=== PATIENT | male | born 1945 | race Caucasian/White ===

== ENCOUNTER 2022-03-09 12:40 | Outpatient (CLI) | payer MEDICARE, SELFPAY ==
--- NOTE | ~2022-03-09 | CT_ITS ---
EXAMINATION: CT soft tissue neck wo/w con DATE: 03/09/2022 13:14 INDICATION: Squamous cell carcinoma of skin. TECHNIQUE: Computed tomography (CT) of the neck was performed without and with 75 mL Omnipaque 350 in travenous contrast. Automated exposure control and iterative reconstruction technique were employed. The dose-length product was 1003.08 mGy-cm. COMPARISON: None FINDINGS: There is mild scarring at the lung apices. There are changes of resection of right parotid gland. Left submandibular gland and left sternocleidomastoid muscle are small, which may be changes o f surgery and/or radiation therapy. There is fat stranding in the neck, likely changes of radiation t herapy. There is plaque in the proximal internal carotid arteries with less than 50% stenosis relativ e to normal distal artery lumen diameters. There is mild mucosal thickening in the paranasal sinuses. There are pacer wires in left chest. There is a small left mastoid effusion. There is severe cervica l and thoracic spondylosis. IMPRESSION: 1. No evidence of metastatic disease. Reviewed, dictated and finalized at location A. B PACKER
--- NOTE | ~2022-03-09 | CT_ITS ---
EXAMINATION: CT brain wo con DATE: 03/09/2022 13:14 INDICATION: Squamous cell carcinoma of skin. TECHNIQUE: Computed tomography (CT) of the head was performed without intravenous contrast. The mA wa s adjusted according to patient size. Iterative reconstruction technique was employed. The dose-lengt h product was 605.33 mGy-cm. COMPARISON: None FINDINGS: There are scattered areas of low attenuation in the cerebral white matter, which is within normal limits for the patient's age. There is no intracranial hemorrhage, acute infarction, or abnorm al intracranial mass lesion. The ventricles are normal in size. The orbits are normal. There is mild mucosal thickening in the paranasal sinuses. There is a small left mastoid effusion. There are likely surgical changes at the left frontal lateral scalp. IMPRESSION: 1. Normal aging brain. Reviewed, dictated and finalized at location A. KER AND SEWER IMPRESSION: 1. Normal aging brain.
== END 2022-03-09 12:41 | disposition home or self-care (01) ==
PROVIDERS: PCP Family Medicine Sports Medicine
DX: C44.92 Squamous cell carcinoma of skin, unspecified (principal)
CPT/HCPCS: 70450; 70492; Q9967

== ENCOUNTER 2022-09-19 12:24 | Emergency (ER) | payer MEDICARE, SELFPAY ==
[2022-09-19 12:27] VITALS: BP 211/84; PULSE 60; RESP 16; TEMP 36.1; O2SAT 99
--- NOTE | 2022-09-19 12:33 | ECG_ITS ---
Measurements Intervals [place] Rate: 60 P: 128 [place]: 195 QRS: -52 QRSD: 164 T: 107 QT: 447 QTc: 447 Interpretive Statements ELECTRONIC ATRIAL PACEMAKER ELECTRONIC VENTRICULAR PACEMAKER BASELINE WANDER- V1 NO FURTHER INTERPRETATION IS POSSIBLE ATYPICAL ECG COMPARED TO ECG 02/18/2019 23:51:20 NO SIGNIFICANT CHANGES Electronically Signed On 09-19-2022 13:02:35 CDT by Wilfredo Borrero D.O.
--- NOTE | 2022-09-19 15:00 | ED.WOUNDLAC ---
HPI - Wound/Laceration General Chief Complaint: Wound/Laceration Stated Complaint: L LEG REDNESS S/P BEE STING, ELEVATED BP Time Seen by Provider: 09/19/22 14:14 History of Present Illness HPI narrative: This is 77-year-old male with past history of hypertension, presented to the emergency department with concern for an infected bee sting of the left leg. The patient states several days ago, he was stung on the left ankle and has since developed spreading redness and mild pain in the area. He denies weakness, numbness, nausea or vomiting. He also notes today that his blood pressure was elevated to the 200s. He states he has had episodes of elevated blood pressure but has no other complaints at this time. Related Data Home Medications Medication Instructions Recorded Confirmed apixaban 2.5 mg tablet (Eliquis) 2.5 mg PO BID 02/19/19 02/19/19 simvastatin 5 mg tablet 5 mg PO DAILY 02/19/19 02/19/19 Allergies Allergy/AdvReac Type Severity Reaction Status Date / Time No Known Allergies Allergy Verified 02/19/19 00:50 Review of Systems Review of Systems: CONSTITUTIONAL: Denies fever, chills, or sweats. CARDIOVASCULAR: Denies chest pain, palpitations, or edema. RESPIRATORY: Denies cough or dyspnea. GASTROINTESTINAL: Denies abdominal pain, nausea, vomiting, or diarrhea. GENITOURINARY: Denies dysuria or hematuria. SKIN: Spreading redness and irritation of the left ankle denies itching. MUSCULOSKELETAL: Denies back pain, joint pain, or myalgia. NEUROLOGIC: Chronic intermittent headaches denies numbness, dizziness, or weakness. PSYCHIATRIC: Denies anxiety or depression. PMFSH Past Medical History Medical History AV block, 2nd degree DM II (diabetes mellitus, type II), controlled Hypertension Surgical History Surgical History History of hip surgery History of permanent cardiac pacemaker placement Hx of cardiac cath Social History Social History (Updated 09/19/22 @ 15:03 by Jose Barber MD) Smoking status: Never smoker Alcohol intake: never Substance use: never Exam Narrative: GENERAL: Well-developed, well-nourished, and in no acute distress. HEAD: Normocephalic, atraumatic. EYES: PERRLA and EOMI. ENT: Nares clear, no rhinorrhea or epistaxis. Mucous membranes moist. Oropharynx without tonsillar hypertrophy exudate or other lesions. CHEST: Clear to auscultation. No respiratory distress. No wheezes rales or rhonchi. There is a foreign object in the anterior lateral left chest wall consistent with pacemaker HEART: Regular rate and rhythm. No murmur heard. Normal peripheral pulses. ABDOMEN: Soft, nontender, nondistended, normal active bowel sounds. EXTREMITIES: Normal range of motion. No edema. SKIN: There is an area of erythema with mild induration with sharp demarcation over the lateral aspect of the left distal ankle with a single punctate hyperpigmented lesion. Warm, dry, no rash. NEURO: No focal deficits. Alert and oriented x3. PSYCH: Normal mood and affect. Course Course Emergency Course: 15:04 - The patient's exam is consistent with cellulitis. Blood pressure improved without intervention. EKG is not concerning for ischemia. Will discharge with oral antibiotics and recommendation for primary care follow-up. Discussed return and emergency precautions including signs/symptoms of sepsis and septic arthritis. The patient voiced understanding and is comfortable with the plan. All questions answered to his satisfaction. Vital Signs Vital signs: Vital Signs Temperature 96.9 F L 09/19/22 12:27 Pulse Rate 60 09/19/22 12:27 Respiratory Rate 16 09/19/22 12:27 Blood Pressure 211/84 H 09/19/22 12:27 Pulse Oximetry 99 09/19/22 12:27 Temperature 96.9 F L 09/19/22 12:27 Pulse Rate 60 09/19/22 12:27 Respiratory Rate 16 09/19/22 12:27 Blood Pressure 21
[2022-09-19 15:23] VITALS: BP 161/79; PULSE 66; RESP 22
== END 2022-09-19 15:23 | disposition home or self-care (01) ==
PROVIDERS: Emergency Provider Preventive Medicine Aerospace Medicine; PCP Family Medicine Sports Medicine
DX: L03.116 Cellulitis of left lower limb (principal); I10 Essential (primary) hypertension; E11.9 Type 2 diabetes mellitus without complications; Z95.0 Presence of cardiac pacemaker
CPT/HCPCS: 93005; 99283

== ENCOUNTER 2025-02-10 10:26 | Emergency (ER) | payer MEDICARE, SELFPAY ==
--- NOTE | ~2025-02-10 | CT_ITS ---
CT HEAD NON-CONTRAST Clinical History: Migraine Comparison: 03/09/2022 Technique: Unenhanced axial images skull base to vertex Coronal, sagittal reformats CT images acquired with automatic exposure control for dose reduction DLP: 605 mGy-cm Findings: Age-related atrophy. Chronic white matter microvascular ischemic changes. Sulci, ventricles: Unremarkable. No intracerebral hemorrhage. No evidence acute territorial infarct. No mass effect, midline shift. Bony calvarium intact. Visualized paranasal sinuses: Sphenoid disease. Mastoid air cells: Fluid left side. IMPRESSION: 1. No acute intracranial findings. Reviewed, dictated and finalized at location R. [facility]
--- NOTE | ~2025-02-10 | CT_ITS ---
EXAMINATION: CT abdomen pelvis w con DATE: 02/10/2025 11:24 INDICATION: Abdominal pain. TECHNIQUE: Computed tomography (CT) of the abdomen and pelvis was performed with 100 mL Omnipaque 350 intravenous contrast. Automated exposure control and iterative reconstruction technique were employed. The dose-length product was 430.64 mGy-cm. COMPARISON: None. FINDINGS: The visualized portions of lung bases demonstrate mild atelectasis. No pleural effusion. The heart size is normal. There are coronary artery calcifications. There are calcifications of the aortic valve. No pericardial effusion. There is a trace pericardial effusion. There is a left chest wall pacer with leads in the right atrium and right ventricle. The liver, gallbladder, and spleen are normal. There is a 6 mm cystic lesion in the uncinate process of the pancreas, likely benign. The pancreatic duct is dilated to 9 mm in the tail of the pancreas. The adrenal glands and kidneys are normal. The bladder is distended. There is diverticulosis of the colon without evidence of diverticulitis. The appendix is not visualized. There are no pathologically enlarged lymph nodes. There is no free intraperitoneal fluid. There are bilateral total hip arthroplasties. There is mild thoracic and lumbar sp ondylosis. IMPRESSION: 1. Dilatation of the pancreatic duct in the tail of the pancreas, which may be secondary to chronic pancreatitis or obstruction from occult adenocarcinoma. Reviewed, dictated and finalized at location E. EXAMINER
--- OUTSIDE RECORDS SUMMARY | 2025-02-10 09:00 | XMS_ITS | Encounter Summary ---
Author Organization [facility] Healthcare Address [address] [place] [address] Care Team Providers Care Computer Aide Name Role Phone Jayla Muro DO Unavailable [phone] Natalie Vang NP Unavailable [phone] Eric Herron OD Unavailable [phone] Jeramy Vargas MD Unavailable [phone] Guido Baez MD Unavailable [phone] Jamil Martinez MD Unavailable [phone] Guido Albrecht MD Unavailable [phone] Eyal Pitts MD Primary Care Provider [phone] Reason for Visit * Reason Comments Abdominal Pain Has had pain for abo ut a year but getting worse over the past couple of weeks Poor Appetite No appetite, losing a lot of weight Encounter Details Date Type Department Care Team (Late st Contact Info) Description 02/10/2025 9:00 AM MOTORIZED SQUAD CAPTAIN Office Visit [facility] Primary Care at [address] [id number] Renita Leigh NP [address] [place] [id number] Type 2 diabetes mellitus with hyperglycemia, with long-term current use of insulin (HCC) (Primary Dx); Abdominal pain, acute; Shortness of breath; Type 2 diabetes mellitus with diabetic polyneuropathy, without long-term current use of insulin (HCC); Anxiety; Personal history of CLL (chronic lymphocytic leukemia) Social History Tobacco Use Types Packs/Day Years Used Date Smoking Tobacco: Never Smokeless Tobacco: Never Alcohol Use Standard Drinks/Week Comments Never 0 (1 standard drink = 0.6 oz pur e alcohol) Social Connection and Isolation Panel Answer Date Recorded In a typical week, how many times do you talk on the phone with family, friends, or neighbors? Three times a week 11/15/2022 How often do you get togethe r with friends or relatives? Three times a week 11/15/2022 How often do you attend chur ch or shinto services? Never 11/15/2022 Do you belong to any clubs o r organizations such as scientology groups, unions, fraternal or athletic groups, or school groups? No 11/15/2022 How often do you attend meet ings of the clubs or organizations you belong to? Never 11/15/2022 Are you , , di vorced, , never , or living with a partner? 11/15/2022 Overall Financial Resource Strain (CARDIA) Answe r Date Recorded How hard is it for you to pa y for the very basics like food, housing, medical care, and heating? Not hard at all 11/15/2022 PHQ-2 Answer Date Recorded PHQ-2 Total Score (If total score is 3 or more points, staff should administer the PHQ-9) 0 02/10/2025 Hunger Vital Sign Answer Date Recorded Within the past 12 months, y ou worried that your food would run out before you got the money to buy more. Never true 11/16/19 23 Within the past 12 months, t he food you bought just didn't last and you didn't have money to get more. Never true 11/15/2022 PRAPARE - Transportation Answer Date Re corded In the past 12 months, has l ack of transportation kept you from medical appointments or from getting medications? No 08/2022 In the past 12 months, has l ack of transportation kept you from meetings, work, or from getting things needed for daily living? No 11/15/2022 Housing Stability Vital Sign Answer Jasper e Recorded In the last 12 months, was t here a time when you were not able to pay the mortgage or rent on time? No 11/15/2022 In the last 12 months, how many places have you lived? 1 11/15/2022 In the last 12 months, was t here a time when you did not have a steady place to sleep or slept in a intermediate (including now)? No 11/15/2022 AUDIT-C Answer Date Recorded Q1: How often do you have a drink containing alc ohol? Never 01/22/2025 Average Number of Drinks Not on file 025 Frequency of Binge Drinking Not on file 01/10 Personal Safety Answer Date Recorded Have you ever been in or are you currently in a harmful physical or emotional relationship or is someone making you feel afraid or unsafe? Denies 09/11/2023 Sex and Gender Information Value Date Recorded Sex Assigned at Not on file Legal Sex Male 9:23 AM MOTORIZED SQUAD [employer]TAIN Gender Identity Not on file Sexual Orientation Not on file documented as of this encounter Last Filed Vital Signs Vital Sign Reading Time Taken Comments Blood Pressure 136/78 02/10/2025 9:10 AM MOTORIZED SQUAD [employer]TAIN Pulse 100 02/10/2025 9:10 AM MOTORIZED SQUAD CAPTAIN Temperature 36.7 C (98 F) 02/10/2025 9:10 AM MOTORIZED SQUAD CAPTAIN Respiratory Rate 20 02/10/2025 9:10 AM MOTORIZED SQUAD CAPTAIN Oxygen Saturation 98% 02/10/2025 9:10 AM MOTORIZED SQUAD CAPTAIN Inhaled Oxygen Concentration - - Weight 62.6 kg (138 lb) 02/10/2025 9:10 AM MOTORIZED SQUAD CAPTAIN Height 175.3 cm (5' 9) 02/10/2025 9:10 AM MOTORIZED SQUAD CAPTAIN Body Mass Index 20.38 02/10/2025 9:10 AM MOTORIZED SQUAD CAPTAIN documented in this encounter Functional Status * In the past year, patient experienced: Question Answer Date of Assessment Author One or more falls in the las t year 2 02/10/2025 9:09 AM MOTORIZED SQUAD [employer]TAIN Sheryl Turner MA How many times? 1 02/10/2025 9:09 AM MOTORIZED SQUAD [employer]TAIN Sheryl Jean MA Was the patient injured in t he fall? No 02/10/2025 9:09 AM MOTORIZED SQUAD [employer]TAIN Sheryl Turner MA * BP Location Answer Date of Assessment Author Right arm 02/10/2025 9:10 AM MOTORIZED SQUAD [employer]TAIN Sheryl Vo MA * BP Location Answer Date of Assessment Author Right arm 02/10/2025 9:10 AM MOTORIZED SQUAD [employer]TAIN Sheryl Vo MA documented as of this encounter Progress Notes * Renita Leigh NP - 02/10/2025 9:00 AM CST Images from the original note were not included. This patient has verbally consented to recording this visit in order to utilize AI technology in generating this note. Visit Diagnoses and Plan Assessment & Plan Type 2 diabetes mellitus with hyperglycemia, with long-term current use of insulin (HCC) Orders: POCT hemoglobin A1c POCT glucose Abdominal pain, acute Shortness of breath Type 2 diabetes mellitus with diabetic polyneuropathy, without long-term current use of insulin (HCC) In office blood sugar 155. A1c 6.4%. down from previous 7.2% in September. Anxiety Personal history of CLL (chronic lymphocytic leukemia) Pt just saw oncology 01/22/2025: ASSESSMENT: Chronic lymphocytic leukemia and thrombocytopenia: On observation without B symptoms ornotable adenopathy. He remains slightly myelosuppressed from his prior treatment. There was no evidence recurrent CLL. His laboratory data from today are consistent with what he has had several timesover the years. On observation Assessment & Plan Acute abdominal pain: Nausea, vomiting, abdominal pain, and unintentional weight loss Chronic nausea and abdominal pain with recent exacerbation. Significant weight loss over the past year. Differential includes severe reflux or other gastrointestinal pathology. Symptoms may be related to previous head and neck cancer treatment and G-tube placement. - Ordered CT of the abdomen. - Ordered laboratory tests. Shortness of breath and dizziness Symptoms severe enough for emergency intervention. - Called ambulance for emergency evaluation and treatment. -short of breath and nausea - pt states he is also short of breath. Respirations 36 when getting upon exam table. Type 2 diabetes mellitus Previously elevated A1c. Jardiance not tolerated. Metformin increased to three times daily. Currentblood sugar levels reportedly better but monitoring limited due to gastrointestinal symptoms. -last A1c 7.2% History of head and neck cancer Persistent gastrointestinal symptoms may be related to past cancer treatment and anatomical changes. Visit Note Chief Complaint Patient presents with Abdominal Pain Has had pain for about a year but getting worse over the past couple of weeks Poor Appetite No appetite, losing a lot of weight Abdominal Pain This is a chronic problem. The current episode started more than 1 year ago. The onset quality is gradual. The problem occurs constantly. The most recent episode lasted 6 weeks. The problem has been rapidly worsening. The pain is located in the generalized abdominal region. The pain is at a severity of 6/10. The quality of the pain is a sensation of fullness. The abdominal pain does not radiate. A ssociated symptoms include anorexia, belching, constipation, headaches, myalgias, nausea, vomiting and weight loss. Pertinent negatives include no arthralgias, hematochezia, hematuria or melena. The pain is aggravated by eating. The pain is relieved by Nothing. History of Present Illness Alcon Harvey is an 79 year old male who presents with persistent nausea and weight loss. He has been experiencing persistent nausea and weight loss for over a year, with symptoms worseningsignificantly since [employer] Day. He describes a constant state of nausea and has difficulty maintaining a sustainable diet, leading to weight loss. Vomiting occurs approximately every three days, but only small amounts due to limited intake. He has a history of cancer treatment, which included significant surgical intervention in his neck,resulting in a hollow cavity in his throat. This has caused difficulty swallowing, and food often gets stuck near his voice box. A barium swallow test conducted in June was normal. He experiences widespread stomach pain since his cancer treatment and reports having a stomach response to the installation of a G tube. He feels weak, dizzy, and short of breath, noting that his condition is deteriorating daily. He has a history of elevated A1c levels and was previously prescribed Jardiance, which he could nottolerate due to urinary issues. His metformin dosage was increased to three times daily, which he was taking inconsistently based on his blood sugar levels. He reports that his blood sugars are running better now. No relatives at home. Wt Readings from Last 10 Encounters: 02/10/25 62.6 kg (138 lb) 01/22/25 64.6 kg (142 lb 6.4 oz) 12/17/24 63.5 kg (140 lb) 12/04/24 63.7 kg (140 lb 6.4 oz) 09/10/24 68 kg (150 lb) 08/18/24 66.4 kg (146 lb 6.4 oz) 08/11/24 69.4 kg (153 lb) 06/18/24 69.4 kg (153 lb) 06/02/24 69.4 kg (153 lb) 05/22/24 68.2 kg (150 lb 6.4 oz) BP 136/78 (BP Location: Right arm, Patient Position: Sitting) Pulse 100 Temp 36.7 ??C (98 ??F) (Temporal) Resp 20 Ht 175.3 cm (5' 9) Wt 62.6 kg (138 lb) SpO2 98% BMI 20.38 kg/m?? Physical Exam Constitutional: General: He is in acute distress. Appearance: He is well-developed. He is ill-appearing and diaphoretic (mild). Cardiovascular: Rate and Rhythm: Regular rhythm. Tachycardia present. Heart sounds: No murmur heard. Pulmonary: Effort: Pulmonary effort is normal. No respiratory distress. Breath sounds: Normal breath sounds. No wheezing. Abdominal: General: Abdomen is flat. Palpations: Abdomen is soft. Tenderness: There is generalized abdominal tenderness. Skin: General: Skin is warm. Coloration: Skin is pale. Neurological: Mental Status: He is alert and oriented to person, place, and time. General: well nourished and well developed in no acute distress. Heart: Regular rate and rhythm without murmurs or rubs. Chest: Lungs clear to auscultation bilaterally with good air movement. Skin: No rashes. Renita Leigh NP RIZED SQUAD CAPTAIN documented in this encounter Miscellaneous Notes * Assessment & Plan Note - Renita Leigh NP - 02/10/2025 9:00 AM MOTORIZED SQUAD [employer]TAIN Associated Problem(s): Personal history of CLL (chronic lymphocytic leukemia) Pt just saw oncology 01/22/2025: ASSESSMENT: Chronic lymphocytic leukemia and thrombocytopenia: On observation without B symptoms ornotable adenopathy. He remains slightly myelosuppressed from his prior treatment. There was no evidence recurrent CLL. His laboratory data from today are consistent with what he has had several timesover the years. On observation RIZED SQUAD CAPTAIN RIZED SQUAD CAPTAIN * Assessment & Plan Note - Renita Leigh NP - 02/10/2025 9:00 AM MOTORIZED SQUAD CAPTAIN Associated Problem(s): Type 2 diabetes mellitus with diabetic polyneuropathy, without long-term current use of insulin (HCC) In office blood sugar 155. A1c 6.4%. down from previous 7.2% in September. RIZED SQUAD CAPTAIN RIZED SQUAD CAPTAIN * Assessment & Plan Note - Renita Leigh NP - 02/10/2025 9:00 AM MOTORIZED SQUAD CAPTAIN Associated Problem(s): Abdominal pain, acute RIZED SQUAD CAPTAIN * Assessment & Plan Note - Renita Leigh NP - 02/10/2025 9:00 AM MOTORIZED SQUAD [employer]TAIN Associated Problem(s): Shortness of breath RIZED SQUAD CAPTAIN * Assessment & Plan Note - Renita Leigh NP - 02/10/2025 9:00 AM MOTORIZED SQUAD [employer]TAIN Associated Problem(s): Anxiety [employer]ED SQU[employer]TAIN documented in this encounter Plan of Treatment Not on file documented as of this encounter Procedures Procedure Name Priority Date/Time Associated Diagnosis Comments POCT GLUCOSE Routine 02/10/2025 9:45 AM MOTORIZED SQUAD [employer]TAIN Type 2 diabetes mellitus with hyperglycemia, with long-term current use of insulin (HCC) POCT HEMOGLOBIN A1C Routine 02/10/2025 9 :40 AM MOTORIZED SQUAD CAPTAIN Type 2 diabetes mellitus with hyperglycemia, with long-term current use of insulin (HCC) documented in this encounter Results * POCT glucose (02/10/2025 9:45 AM MOTORIZED SQUAD CAPTAIN) Glucose Blood, POC 155 Normal Fasting 70 - 100, Random <200 mg/dL Blood 02/10/2025 9:45 AM MOTORIZED SQUAD CAPTAIN us Renita Leigh NP POINT OF CARE TEST ORDERABLES Final Result * (ABNORMAL) POCT hemoglobin A1c (02/10/2025 9:40 AM MOTORIZED SQUAD CAPTAIN) Hemoglobin A1C, POC 6.4(A) 4.0 - 5.6 % Blood 02/10/2025 9:40 AM MOTORIZED SQUAD CAPTAIN Renita Leigh SHIPPER/RECEIVER POINT OF CARE TEST ORDERABLES Final Result documented in this encounter Visit Diagnoses Diagnosis Type 2 diabetes mellitus with hyperglycemia, with long-term current use of insulin ([facility])- Primary Abdominal pain, acute Abdominal pain, unspecified site Shortness of breath Type 2 diabetes mellitus with diabetic polyneuropathy, without long-term current use of insulin ([facility]) Anxiety Anxiety state, unspecified Personal history of CLL (chronic lymphocytic leukemia) Personal history of lymphoid leukemia documented in this encounter Discontinued Medications Medication Sig Discontinue Reason Start Date End Da te empagliflozin (Jardiance) 10 mg tabletIndications:type 2 diabetes mellitus Take 1 tablet (10 mg total) by mouth daily Patient Reported 09/28/2024 02/10/2025 documented as of this encounter Care Teams Computer Aide Relationship Specialty Start Date End Date Eayl Pitts MD [address] [place] [id number] PCP - General Family Medicine 09/10/24 Jayla Muro DO Consulting Physician Otolaryngology 08/24/18 Natalie Vang NP Nurse Practitioner Medical Oncology 05/03/21 Eric Herron OD [address] [place] [address] Optometry 12/14/21 Jeramy Vargas MD [address] [place] [address] Medical Oncologist/Hematologis t Hematology and Oncology 05/04/22 Guiod Baez MD [address] [place] [address] [address] [place] [address] Consulting Physician Neurology 02/21/23 Jamil Martinez MD [address] [place] [address] [address] [place] [address] Medical Oncologist/Hematologis t Medical Oncology 05/22/24 Guido Albrecht MD [address] [place] [address] [id number] Consulting Physician Cardiology 09/10/24 Magdy Tejeda MD Consulting Physician Plastic Surgery 04/14/24 documented as of this encounter
[2025-02-10 10:26] VITALS: BP 189/95; PULSE 94; RESP 14; TEMP 36.8; O2SAT 99
--- NOTE | 2025-02-10 11:01 | ECG_ITS ---
Test Date: 2025-02-10 11:30:50 Measurements Intervals [place] Rate: 82 P: 93 [place]: 176 QRS: -63 QRSD: 170 T: 111 QT: 403 QTc: 473 Interpretive Statements ATRIAL SENSE- ELECTRONIC VENTRICULAR PACEMAKER BASELINE ARTIFACT- I, II, AVR, AVL, AVF, V4-V6 NO FURTHER INTERPRETATION IS POSSIBLE ATYPICAL ECG No previous ECG available for comparison Electronically Signed On 02-10-2025 12:46:49 MEDICAL OFFICE TECHNOLOGIST by Wilfredo Borrero D.O.
[2025-02-10 11:09] LABS: Alanine Aminotransferase 17 U/L (6-50); Albumin Level 4.4 g/dL (3.5-5.1); Alkaline Phosphatase 120 U/L (38-126); Anion Gap 6 mmol/L (4-12); Aspartate Amino Transferase 24 U/L (17-59); Bilirubin,Total 0.7 mg/dL (0.2-1.3); Blood Urea Nitrogen 15 mg/dL (9-20); Calcium 9.0 mg/dL (8.4-10.2); Carbon Dioxide 28 mmol/L (22-30); Chloride 100 mmol/L (98-107); Estimated CRCL calculation 58 ml/min; Estimated Glomerular Filt Rate > 60; Glucose 113 mg/dL (65-110); Lipase 121 U/L (23-300); Potassium 4.1 mmol/L (3.4-5.0); Sodium 134 mmol/L (137-145); Total Protein 7.2 g/dL (6.3-8.2)
--- OUTSIDE RECORDS SUMMARY | 2025-02-10 11:26 | XMS_ITS ---
Author Organization [facility] [address] Address [address] [place] [address] Phone Care Team Providers Care Reel Slitter Name Role Phone Jayla Muro DO Unavailable [phone] Natalie Vang NP Unavailable [phone] Eric Herron OD Unavailable [phone] Jeramy Vargas MD Unavailable [phone] Guido Baez MD Unavailable [phone] Jamil Martinez MD Unavailable [phone] Guido Albrecht MD Unavailable [phone] Eyal Pitts MD Primary Care Provider Active Problems Problem Noted Date Diagnosed Date Abdominal pain, acute 02/10/2025 Assessment & Plan (02/10/2025 9:50 AM EMBEDDED SOFTWARE PROGRAMMER): Shortness of breath 02/10/2025 Assessment & Plan (02/10/2025 9:50 AM EMBEDDED SOFTWARE PROGRAMMER): Interstitial lung disease 09/10/2024 Otorrhea of right ear 07/08/2024 Assessment & Plan (10/13/2024 1:52 PM CDT): Tobradex 7 drops into EACH EAR, NOT EYE, twice daily for 14 days Avoid ear cleaning techniques Avoid water to ears Follow up in 2-3 weeks for recheck How to Use Ear Drops Assessment & Plan (08/11/2024 2:11 PM CDT): Resolved currently, dried blood removed today Avoid ear cleaning techniques Avoid water to ears Follow up in 4 months for ear check Stop ear drops Assessment & Plan (07/08/2024 10:55 AM CDT): Avoid ear cleaning techniques Avoid water to ears Prescription medications sent to Pharmacy today: Ciprofloxacin 7 drops into the Right ear twice daily for 10 days Follow up as scheduled in August Oropharyngeal dysphagia 06/16/2024 Assessment & Plan (06/16/2024 1:21 PM CDT): Avoid ear cleaning techniques Avoid water to ears Follow up in 4 months Follow up before then for coughing up blood Modified Barium swallow Medicare annual wellness visit, subsequent 03/10 Assessment & Plan (03/10/2024 1:10 PM EMBEDDED SOFTWARE PROGRAMMER): We discussed a comprehensive list of medical conditions and proposed recommendations for each. We discussed the importance of increased exercise, fall prevention, proper nutrition, and suggested joining [facility] to accomplish most of these goals. Patient was given an age appropriate Medicare preventive services checklist. Please see the EMR regarding details of their health risk assessment and preventive services checklist. Preventative health care 03/10/2024 Assessment & Plan (03/10/2024 4:48 PM EMBEDDED SOFTWARE PROGRAMMER): - New or chronic worsening conditions: no significant acute issues on this visit - Mental health: no significant psychiatric/mental health conditions affecting his day to day functioning - Dental health: Up to date with regular dental care and cleaning. Discussed importance of regular tooth brushing, flossing, and dental visits. - Nutrition: Stressed importance of moderation in sodium/caffeine intake, saturated fat and cholesterol, caloric balance, sufficient intake of fresh fruits, vegetables - Exercise: Stressed the importance of regular exercise - Immunizations: Age and sex appropriate immunizations reviewed and offered Dental caries 02/14/2024 Assessment & Plan (02/14/2024 3:41 PM EMBEDDED SOFTWARE PROGRAMMER): Doxycycline daily for 21 days Have oral evaluation by Oral surgery Body mass index (BMI) of 24.0 to 24.9 in adult 1 Assessment & Plan (03/10/2024 1:10 PM EMBEDDED SOFTWARE PROGRAMMER): Wt Readings from Last 3 Encounters: 03/10/24 65.5 kg (144 lb 8 oz) 02/19/24 66.2 kg (146 lb) 12/25/23 67.9 kg (149 lb 11.2 oz) Body mass index is 24.05 kg/m . -Stable, at goal of <30 bmi -Discussed recommendations for exercise at least 30 minutes moderate to vigorous exercise as tolerated most days of the week. (minimum 150 minutes weekly) -Discussed importance of well-balanced diet Assessment & Plan (12/26/2023 9:08 PM CDT): Wt Readings from Last 3 Encounters: 12/25/23 67.9 kg (149 lb 11.2 oz) 12/10/23 68 kg (150 lb) 11/19/23 68 kg (150 lb) Body mass index is 24.29 kg/m . -Stable, at goal of <30 bmi -Discussed recommendations for exercise at least 30 minutes moderate to vigorous exercise as tolerated most days of the week. (minimum 150 minutes weekly) -Discussed importance of well-balanced diet Trochanteric bursitis of right hip 08/23/2023 Coronary artery calcification seen on CAT scan 0 05/03/2023 Overview (05/03/2023): Incidental on CT chest April 2023. Risk factor modification recommended with blood pressure control ASA and statin with goal of keeping LDL less than 70 Otorrhea of left ear 04/06/2023 Assessment & Plan (10/13/2024 1:52 PM CDT): Tobradex 7 drops into EACH EAR, NOT EYE, twice daily for 14 days Avoid ear cleaning techniques Avoid water to ears Follow up in 2-3 weeks for recheck How to Use Ear Drops Assessment & Plan (04/06/2023 12:10 PM EMBEDDED SOFTWARE PROGRAMMER): Ciprofloxacin 7 drops into LEFT EAR, NOT EYE, twice daily for 10 days Avoid ear cleaning techniques Avoid water to ears How to Use Ear Drops discussed and Handout provided buttermaker (current) use of anticoagulants 2022 Overview (02/21/2023): Bleeding risk discussed. Given patient is concerned about easy bleeding he may want to discuss if he has a candidate for a Watchman with his four slide machine operator Assessment & Plan (03/10/2024 1:11 PM EMBEDDED SOFTWARE PROGRAMMER): -chronic, stable -currently takes Eliquis 5 mg b.i.d. -associated with persistent AFib -follows with cardiology -continue current treatment plan Assessment & Plan (12/26/2023 7:39 PM CDT): Lab Results Component Value Date INR 1.2 11/02/2022 INR 1.2 11/17/2020 -chronic, stable -currently takes Eliquis 5 mg b.i.d. -associated with persistent AFib -follows with cardiology -continue current treatment plan Assessment & Plan (04/12/2023 5:47 PM EMBEDDED SOFTWARE PROGRAMMER): Patient continues have some easy bleeding tendencies due to anticoagulation as well as need for antiplatelet agent given his carotid procedure last year. Patient believes this is part of why he had some hemoptysis. He has not too concerned. He denies any frequent recurrent hemoptysis, hematemesis or blood in his stool but he does note that he bleeds very easily Cervical spinal stenosis 01/16/2023 Cholesteatoma of both external auditory canals 0 12/04/2022 Assessment & Plan (11/03/2024 1:46 PM CDT): Avoid ear cleaning techniques Avoid water to ears Follow up in 4 months for recheck Assessment & Plan (10/14/2024 8:52 AM CDT): Consider referral to Otology if no improvement at follow up Assessment & Plan (06/16/2024 1:19 PM CDT): Avoid ear cleaning techniques Avoid water to ears Follow up in 4 months Follow up before then for coughing up blood Assessment & Plan (02/14/2024 3:41 PM EMBEDDED SOFTWARE PROGRAMMER): Avoid ear cleaning techniques Avoid water to ears Recheck in ears in 4 months Assessment & Plan (12/04/2022 11:33 AM CDT): Avoid ear cleaning techniques Avoid water to ears Follow up 4-6 months for ear canal check Resistant hypertension 11/22/2022 Assessment & Plan (12/11/2023 7:43 AM CDT): Stable continue metoprolol Assessment & Plan (02/21/2023 8:05 PM EMBEDDED SOFTWARE PROGRAMMER): Blood pressures have been very variable over the last year. I suspect there is dietary and emotional triggers. Given he is near goal we will continue current medication. Continue monitoring Assessment & Plan (11/22/2022 6:02 PM CDT): Chronic. Blood pressures have been somewhat difficult to remain under control. Some of his readings fluctuate significantly. He complains of symptoms of low blood pressure and intermittent light-headedness/orthostasis. Given he has intermittent blood pressure readings that are very good interspersed with the degree of elevation I am still very hesitant to try to increase his medications further as I do not want to cause him to pass out. We will have him continue to look at things within his diet and his supplements that may be contributing some of the blood pressure elevations. He really does need to manage his salt intake as I suspect this is 1 of his triggers. Encouraged patient not to eat toast does in chips regularly. Watch the salt in take. His blood pressures were very good in the hospital which may be owing to him being on a better diet in the hospital then he is on at home. He will update with the blood pressure readings in a couple weeks Anxiety 11/22/2022 Assessment & Plan (02/10/2025 9:50 AM EMBEDDED SOFTWARE PROGRAMMER): Assessment & Plan (12/26/2023 9:07 PM CDT): -chronic, stable -patient currently does not require medication for this -patient denies any worsening of depressed mood, thoughts of harming herself or others, or worsening anxiety -encouraged patient to reach out to office if anxiety worsens -continue current treatment plan Assessment & Plan (02/21/2023 8:05 PM EMBEDDED SOFTWARE PROGRAMMER): Patient does have a degree of mild anxiety. He is stable currently. We will monitor. Defer need for medication Assessment & Plan (11/22/2022 6:00 PM CDT): Patient has a degree of anxiety. He is rare worried about his issues. I suspect some of his blood pressure elevations are related to anxiety. He has been struggling more mentally since the passing of his . We will need to continue to monitor Carotid stenosis, right 11/14/2022 Assessment & Plan (12/17/2024 10:09 AM CDT): Widely patent right ICA stent. Continue Plavix and Eliquis and statin therapy. Follow up in 1 year with repeat carotid duplex. Assessment & Plan (06/20/2024 10:33 AM CDT): Status post right TCAR with no evidence of InStent stenosis. Doing extremely well since his procedure. Continue ASA Plavix and statin therapy. Follow up in 6 with a repeat carotid duplex. Assessment & Plan (12/11/2023 7:43 AM CDT): Status post right TCAR with widely patent internal carotid artery stent. Continue risk factor modification with ASA Plavix and statin therapy. Follow up in 6 months repeat carotid duplex Assessment & Plan (06/05/2023 10:32 AM CDT): Right-sided carotid stenosis status post TCAR 11/14/2022. Current duplex shows stent is patent. Patient continues to recover well. No current concerns. Plan: Continue aspirin Plavix and statin therapy. Follow-up in 6 months for routine surveillance with carotid duplex Assessment & Plan (04/12/2023 5:48 PM EMBEDDED SOFTWARE PROGRAMMER): Status post intervention last year. Remains on antiplatelet agent for now Assessment & Plan (02/21/2023 8:05 PM EMBEDDED SOFTWARE PROGRAMMER): Status post carotid stenting earlier this year. Had the complication of postoperative hematoma. His Eliquis dose has been decreased from 5 mg twice daily to 2.5 mg twice daily given concerns about his excessive bleeding in the setting use of Clopidogrel, Eliquis and his known chronic thrombocytopenia Assessment & Plan (11/22/2022 5:56 PM CDT): Status post recent carotid surgery with intervention. Has complication of postoperative hematoma. Has follow up with vascular. He is currently off of his NOAC until he can see vascular for follow-up Osteoarthritis of spine with radiculopathy, lumb ar region 08/17/2022 Chronic migraine without aur a without status migrainosus, not intractable 08/14/2022 History of TIA (transient ischemic attack) 08/14 SCC (squamous cell carcinoma), face 03/30/2022 Overview (03/30/2022): Added automatically from request for surgery [id number] History of arthroplasty of right hip 11/16/2021 Sensorineural hearing loss ( SNHL) of left ear with restricted hearing of right ear 08/12/2018 Assessment & Plan (03/13/2019 3:25 PM EMBEDDED SOFTWARE PROGRAMMER): Continue hearing aids Assessment & Plan (08/12/2018 2:23 PM CDT): Hearing test Thrombocytopenia 08/07/2018 Overview (02/18/2019): Mild, stable, probably residual of treatment of CLL. Assessment & Plan (04/12/2023 5:48 PM EMBEDDED SOFTWARE PROGRAMMER): Patient does have a chronic history of thrombocytopenia. This combined with antiplatelet agent and anticoagulation likely predisposes him to increased bleeding risk. Blood counts were checked just 1 month ago so we deferred today Assessment & Plan (02/21/2023 8:04 PM EMBEDDED SOFTWARE PROGRAMMER): Chronic. Has a degree of persistent mild thrombocytopenia. Patient is having increased easy bleeding and bruising lately. Check labs. May need to be cautious with use of the Clopidogrel, NOAC in the setting of the thrombocytopenia. Monitor. Rate now does need to stay on Clopidogrel given recent carotid stent earlier this year Assessment & Plan (11/22/2022 5:58 PM CDT): Chronic. Mild. Follows with Hematology. Was felt potentially to be residual from his prior treatment for CLL. It may have contributed some to the postoperative hematoma formation Assessment & Plan (11/04/2020 4:31 PM CDT): Platelets are slightly low, but should be in adequate range for the planned hip replacement surgery. Assessment & Plan (08/26/2020 1:51 PM CDT): His blood count is checked regularly in Oncology where they are monitoring a history of CLL which appears to be in remission. Lab Results Component Value Date WBC 5.5 05/05/2020 HGB 15.0 05/05/2020 HCT 42.1 05/05/2020 MCV 88.8 05/05/2020 LABPLAT 116 (L) 05/05/2020 Paroxysmal atrial fibrillation 04/08/2018 Overview (07/27/2018): Noted on pacer checks, started on anticoagulation, [facility]. Assessment & Plan (03/10/2024 3:39 PM EMBEDDED SOFTWARE PROGRAMMER): -chronic, stable -noted prior to pacer in with pacer checks -currently takes Eliquis 5 mg b.i.d., metoprolol 100 mg daily -continue current treatment plan with specialist Assessment & Plan (12/26/2023 9:03 PM CDT): -chronic, stable -noted prior to pacer in with pacer checks -currently takes Eliquis 5 mg b.i.d., metoprolol 100 mg daily -continue current treatment plan with specialist Assessment & Plan (04/12/2023 5:45 PM EMBEDDED SOFTWARE PROGRAMMER): Chronic. Patient remains on chronic anticoagulation for stroke prevention. Assessment & Plan (02/21/2023 8:04 PM EMBEDDED SOFTWARE PROGRAMMER): Chronic. Follows with cardiology. Discussed stroke risk. Patient is having some issues with bleeding which is why Eliquis was decreased previously from 5 mg twice daily to 2.5 mg twice daily. Patient may want to discuss having a Watchman device with his four slide machine operator given their concerns about bleeding risk with his chronic platelet disorder Assessment & Plan (11/22/2022 5:58 PM CDT): Chronic. On beta-alok. His anticoagulation is currently on hold due to the postoperative hematoma from the carotid surgery. He should restarted once vascular clear some given his stroke risk Assessment & Plan (02/25/2021 1:56 PM EMBEDDED SOFTWARE PROGRAMMER): He is on Eliquis and a beta-alok. Heart rhythm is regular because he has a pacemaker. Rate is controlled. Continue same. Assessment & Plan (11/04/2020 4:34 PM CDT): He will need to stop his Eliquis before the surgery. He has instructions from Dr. Heller regarding the specifics. Assessment & Plan (09/13/2020 1:39 PM CDT): His Eliquis was interrupted for his recent ear surgery. A skin lesion of some kind was removed. He resumed taking it a few days after the surgery. We put it back on his list. Assessment & Plan (02/26/2020 2:11 PM EMBEDDED SOFTWARE PROGRAMMER): He has a pacemaker. Heart rhythm is regular at this time. He continues on Eliquis and a beta-alok. Assessment & Plan (08/27/2019 2:19 PM CDT): Heart rhythm is regular because he has a pacemaker. He is on Eliquis. Continue current therapy. Keep followups with Cardiology as well. Assessment & Plan (02/19/2019 2:05 PM EMBEDDED SOFTWARE PROGRAMMER): Heart rhythm is irregular. Rate is controlled. Continue beta-alok and anticoagulation. Assessment & Plan (08/14/2018 2:59 PM CDT): Heart rate is controlled. He is on Eliquis. He has a four slide machine operator in the local area that he will be following up with. Assessment & Plan (07/29/2018 1:14 PM CDT): Heart rhythm is regular, probably because he has a pacemaker. He is on Eliquis for underlying atrial fibrillation seen on a recent pacemaker check in March. Continue current medications. He has a four slide machine operator at [facility] that he will be seeing regularly as well. Chronic systolic heart failure 10/31/2017 Overview (07/27/2018): LVEF 40-45% on echo in July 2017, [facility]. Assessment & Plan (03/10/2024 3:40 PM EMBEDDED SOFTWARE PROGRAMMER): -chronic, stable -currently takes metoprolol 100 mg -follows with cardiology -patient denies any increased fatigue, shortness of breath, chest pressure -continue current treatment plan with specialist Assessment & Plan (04/12/2023 5:45 PM EMBEDDED SOFTWARE PROGRAMMER): Currently appears compensated. No signs of decompensation. Doubtful this is contributing to his current symptoms Assessment & Plan (02/21/2023 8:03 PM EMBEDDED SOFTWARE PROGRAMMER): Chronic. Compensated. Follows with cardiology. Continue medication administrator health care facility Assessment & Plan (11/22/2022 5:56 PM CDT): Chronic. Symptoms relatively compensated. Monitor Assessment & Plan (02/25/2021 1:56 PM EMBEDDED SOFTWARE PROGRAMMER): He has a mild decrease in LVEF. He is on an Low inhibitor and a beta-alok. He is not requiring a diuretic. He will keep followups with Cardiology. Assessment & Plan (11/04/2020 4:33 PM CDT): He has a mildly diminished LVEF. He is on medical therapy and seems well compensated. He saw his four slide machine operator for a clearance, and they had no problem with the planned surgery. He should be at average risk for cardiovascular complications. Assessment & Plan (08/26/2020 1:54 PM CDT): He does not have the energy he used to, but some of this might be due to a recent bout of severe diarrhea that lasted for several weeks after he received levofloxacin following some ear surgery. He had cramps and watery stools, but no blood in the stools. Things are nearly back to normal over the past week. We discussed that this might have been a C diff infection but since he is improving we will monitor clinically without investigation or intervention. With regard to his heart condition, he seems well compensated on current medical therapy. There is no swelling in his legs. Lungs are clear and oxygenation is normal. Assessment & Plan (02/26/2020 2:10 PM EMBEDDED SOFTWARE PROGRAMMER): He seems to be well compensated on current therapy. Continue same. Keep followups with Cardiology. Assessment & Plan (08/27/2019 2:19 PM CDT): This is clinically and echocardiographically fairly mild. He is doing well on current therapy with no swelling in his legs. Continue same and follow-up in six months. Assessment & Plan (02/19/2019 2:06 PM EMBEDDED SOFTWARE PROGRAMMER): He seems to be fairly well compensated. There is no edema or crackles. His blood pressure is a little high, see discussion elsewhere. Continue to monitor clinically. Assessment & Plan (08/14/2018 2:59 PM CDT): He is on a good medical regimen. Continue same. Assessment & Plan (07/29/2018 1:15 PM CDT): He has mild chronic systolic heart failure compensated at this time with lisinopril and a beta-alok. Continue same and keep followups with Cardiology. Pacemaker 05/02/2016 Overview (04/10/2024): [employer] Accolade Dual Pacemaker. Dx; CHB, SSS, PAF. DOI 04/25/2023-Dr Mathews. [facility]. Latitude remote. Assessment & Plan (12/26/2023 8:58 PM CDT): -chronic, stable -follows with cardiology -placed due to complete heart block -recent revision earlier this year -continue current treatment plan with the specialist Assessment & Plan (02/21/2023 8:02 PM EMBEDDED SOFTWARE PROGRAMMER): Chronic. Is seeing new four slide machine operator. Defer when he is new for possible pacemaker exchange to Special Assessment & Plan (11/04/2020 4:32 PM CDT): He has atrial and ventricular pacing. He saw his four slide machine operator at [facility] who cleared him for the upcoming hip surgery. AV block, complete 05/02/2016 Overview (02/25/2020): Last Assessment & Plan: Pacemaker was interrogated today with results as follows: Device: [employer] [place] Mode: DDDR 60-110 Battery: Middle of Life; Estimated longevity 4 years. Percent Paced: 49% in atrium, 99% in ventricle Sensing: P-waves 4.8 mV; R-waves paced (dependent) Impedence: Right Atrial 440 ohms; Right Ventricular 564 ohms; Left Ventricular N/A ohms Threshold: Right Atrial 0.7 V @ 0.4 ms; Right Ventricular 0.9 V @ 0.4 ms; Left Ventricular N/A V @ N/A ms Events: None. Changes: None. From patient's records from his prior four slide machine operator a recent echo showed ejection fraction of about 40%. Assessment & Plan (12/26/2023 9:02 PM CDT): -chronic, stable -currently has pacemaker in place -also takes metoprolol 100 mg daily -follows with cardiology -continue current treatment plan with specialists Assessment & Plan (04/12/2023 5:45 PM EMBEDDED SOFTWARE PROGRAMMER): Chronic. Has a pacemaker in place. He reports he is due for possible revision later this year Assessment & Plan (02/21/2023 8:03 PM EMBEDDED SOFTWARE PROGRAMMER): Chronic. Follows with cardiology. Has pacemaker Assessment & Plan (07/29/2018 1:15 PM CDT): He has a pacemaker. Cardiac rhythm is regular. Thyroid nodule 04/05/2015 Overview (08/21/2020): Likely from [facility] records. CT on 04/02/2017: Unchanged nonspecific nodule along the inferior aspect of the left thyroid lobe. Aortic stenosis 02/19/2015 Overview (09/20/2019): Mild by TTE Assessment & Plan (04/12/2023 5:46 PM EMBEDDED SOFTWARE PROGRAMMER): Chronic. Has a degree of mild aortic stenosis. 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 -will recheck lab values -continue current treatment plan Assessment & Plan (12/26/2023 7:37 PM CDT): -chronic, stable -currently takes simvastatin 20 mg nightly -Discussed importance of well-balanced diet. -will recheck lab values next visit -continue current treatment plan Assessment & Plan (12/11/2023 7:43 AM CDT): Stable continue simvastatin Assessment & Plan (02/21/2023 8:05 PM EMBEDDED SOFTWARE PROGRAMMER): Tolerates cholesterol medication. Continue. Risk factor modification recommended. LDL goal less than 70 Assessment & Plan (11/22/2022 5:59 PM CDT): Chronic. LDL goal less than 70. His cholesterol has been near goal with simvastatin so he deferred change to higher intensity statin. Monitor Assessment & Plan (10/24/2022 3:39 PM CDT): Stable continue Zocor 20 mg. Assessment & Plan (02/25/2021 1:55 PM EMBEDDED SOFTWARE PROGRAMMER): He takes generic simvastatin, seems to be tolerating it well. Lipids look favorable. Continue current therapy. Lab Results Component Value Date CHOL 148 02/18/2021 CHOL 143 08/13/2019 CHOL 150 08/01/2018 Lab Results Component Value Date HDL 57 02/18/2021 HDL 61 08/13/2019 HDL 59 08/01/2018 Lab Results Component Value Date LDLCALC 71 08/13/2019 LDLCALC 76 08/01/2018 LDL 76 02/18/2021 Lab Results Component Value Date TRIG 71 02/18/2021 TRIG 53 08/13/2019 TRIG 73 08/01/2018 Lab Results Component Value Date ALT 7 11/10/2020 AST 12 11/10/2020 ALKPHOS 124 11/10/2020 BILITOT 0.8 11/10/2020 Assessment & Plan (11/04/2020 4:33 PM CDT): He takes generic Lipitor, tolerating well. Continue same. Assessment & Plan (08/26/2020 1:53 PM CDT): He is on generic simvastatin, tolerating well. Continue same. He sees Cardiology at [facility] for regular appointments. Assessment & Plan (02/26/2020 2:09 PM EMBEDDED SOFTWARE PROGRAMMER): He is tolerating generic Zocor. We will monitor lipids periodically. 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 Had left radical neck resection. Records in Care Everywhere. Assessment & Plan (12/26/2023 9:07 PM CDT): -in remission -first diagnosed several years ago when patient lived in [place] -required left radical neck resection -continue current regular follow up with specialists Assessment & Plan (04/12/2023 5:46 PM EMBEDDED SOFTWARE PROGRAMMER): Patient is in remission. Patient believes that his prior radiation and surgical treatment for this may predispose him to increase risk for occasional episodes of hemoptysis Assessment & Plan (02/21/2023 8:04 PM EMBEDDED SOFTWARE PROGRAMMER): Chronic. Follows with Oncology Assessment & Plan (11/22/2022 5:56 PM CDT): History of prior left radical neck dissection. Currently in remission. Follows with Hematology/Oncology Osteoarthritis of multiple joints 07/10/2008 Overview (07/29/2018): Multiple joints hurt. 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 Assessment & Plan (02/25/2021 1:53 PM EMBEDDED SOFTWARE PROGRAMMER): He takes Tylenol as needed. He had his right hip replaced about three months ago and had a good outcome. He is still on a slight weight restriction and will keep his follow ups with orthopedics. Assessment & Plan (08/26/2020 1:51 PM CDT): He has been having trouble with left hip pain. He thinks it needs to be replaced. He had similar problems with his right hip 10 or 15 years ago and had a good result from joint replacement. He will check with the orthopedic surgeons at [facility] per his preference. Personal history of CLL (chronic lymphocytic sidney kemia) 07/11/2007 Overview (07/29/2018): Monitored for a while, then received chemo and went into remission. Assessment & Plan (02/10/2025 9:50 AM EMBEDDED SOFTWARE PROGRAMMER): Pt just saw oncology 01/22/2025: ASSESSMENT: Chronic lymphocytic leukemia and thrombocytopenia: On observation without B symptoms or notable adenopathy. He remains slightly myelosuppressed from his prior treatment. There was no evidence recurrent CLL. His laboratory data from today are consistent with what he has had several times over the years. On observation Assessment & Plan (04/12/2023 5:46 PM EMBEDDED SOFTWARE PROGRAMMER): Patient had prior treatment for CLL. No signs of active disease at last evaluation. Patient does report his prior treatment for his CLL and Binu cell carcinoma likely have caused some degeneration of some of the tissues within his throat and neck which may have contributed to his increased risk for bleeding and hemoptysis. He has not worried about the recent hemoptysis Assessment & Plan (02/21/2023 8:04 PM EMBEDDED SOFTWARE PROGRAMMER): Chronic. Treated previously. Follows with Oncology for monitoring Assessment & Plan (11/22/2022 5:58 PM CDT): Chronic. In remission. Follows with Hematology Assessment & Plan (02/25/2021 1:52 PM EMBEDDED SOFTWARE PROGRAMMER): He is in remission. He is followed periodically in Oncology. Continue same. Lab Results Component Value Date WBC 8.1 11/18/2020 HGB 11.6 (L) 11/18/2020 HCT 35.2 (L) 11/18/2020 MCV 94.6 11/18/2020 LABPLAT 101 (L) 11/18/2020 Assessment & Plan (09/07/2019 10:28 AM CDT): His CLL is in remission. Platelets are slightly low but there is no evidence of any relapse of leukemia. Continue to monitor at least annually. Assessment & Plan (03/05/2019 1:14 PM EMBEDDED SOFTWARE PROGRAMMER): He is in remission for now. His hematology parameters are being monitored. Last CBC was unremarkable. Continue follow-up in Oncology. Assessment & Plan (07/29/2018 1:16 PM CDT): He was diagnosed with CLL in 2007 approximately. For awhile he was monitored, but then cell count started to go up so he received some chemotherapy and says he went into remission. We will check a follow-up CBC and refer to Dr. Booth for re-evaluation and monitoring. Hypertension associated with type 2 diabetes deborah christianson 04/12/2006 Assessment & Plan (12/17/2024 10:09 AM CDT): Stable continue lisinopril Assessment & Plan (06/20/2024 10:34 AM CDT): Stable continue lisinopril Assessment & Plan (03/10/2024 3:39 PM EMBEDDED SOFTWARE PROGRAMMER): BP Readings from Last 3 Encounters: 03/10/24 147/76 02/19/24 142/88 12/25/23 142/64 -chronic, suboptimally controlled -currently taking metoprolol 100 mg, amlodipine 5 mg, lisinopril 20 mg b.i.d. -patient reports checking blood pressure regularly at home -encourage patient to continue low-sodium diet -continue current treatment plan Assessment & Plan (12/26/2023 9:00 PM CDT): BP Readings from Last 3 Encounters: 12/25/23 142/64 12/10/23 164/84 11/19/23 158/65 -chronic, stable -currently taking metoprolol 100 mg, amlodipine 5 mg, lisinopril 20 mg b.i.d. -patient reports checking blood pressure regularly at home -encourage patient to continue low-sodium diet -refill of medication provided -continue current treatment plan Assessment & Plan (04/12/2023 5:44 PM EMBEDDED SOFTWARE PROGRAMMER): Chronic. Patient's blood pressure is actually controlled today. His diabetes has been controlled. I suspect some of his fluctuations with blood pressure have been due to his anxiety at times. We will monitor Assessment & Plan (02/21/2023 8:03 PM EMBEDDED SOFTWARE PROGRAMMER): Borderline blood pressure control in office today. His readings fluctuate significantly at home. Has a degree of anxiety that contribute. Given borderline control with some episodes of very tight control and lightheadedness we will defer adjustment. Continue current medication. Encouraged to work on managing stress and anxiety as well as dietary triggers Assessment & Plan (11/22/2022 5:57 PM CDT): Chronic. Hypertension has been somewhat difficult to control with fluctuating numbers. Blood pressures were very well controlled in the hospital but have been fluctuating with some elevation since discharge. Patient notes that he has intermittent numbers that are very good and complains of intermittent orthostatic hypotension and symptoms of low blood pressure. Given his fluctuating blood pressures with symptomatic low blood pressures I am hesitant to increase his amlodipine further. Patient is encouraged to minimize salt intake and look for potential alternative triggers blood pressure elevations. We will continue current medications. He is going to update me with his blood pressure logs in another few weeks. If they more consistently running high then we will plan to try to increase his amlodipine or potentially consider adding something like a low-dose spironolactone given he has a degree of resistant hypertension Assessment & Plan (10/24/2022 3:39 PM CDT): Stable continue metoprolol 100 mg. Assessment & Plan (02/25/2021 1:54 PM EMBEDDED SOFTWARE PROGRAMMER): Systolic blood pressure is borderline, but acceptable on current therapy. He is also avoiding excess salt intake. He denies any chest pain. Labs are stable. Continue current therapy and follow-up in six months. Lab Results Component Value Date GLUCOSE 150 (H) 02/18/2021 CALCIUM 9.1 02/18/2021 SODIUM 142 02/18/2021 POTASSIUM 4.4 02/18/2021 CO2 29 02/18/2021 CHLORIDE 105 02/18/2021 BUNSER 12 02/18/2021 CREATININE 0.81 02/18/2021 Assessment & Plan (11/04/2020 4:32 PM CDT): Blood pressure is in a good range on current therapy. Continue same. Follow-up as planned for routine care. Assessment & Plan (08/26/2020 1:53 PM CDT): Blood pressure is in a good range on current therapy which he is tolerating well. Labs are stable. Continue same, and follow-up in six months. Lab Results Component Value Date GLUCOSE 180 08/19/2020 CALCIUM 9.3 08/19/2020 SODIUM 137 08/19/2020 POTASSIUM 4.5 08/19/2020 CO2 27 08/19/2020 CHLORIDE 99 08/19/2020 BUNSER 11 08/19/2020 CREATININE 0.67 (L) 08/19/2020 Assessment & Plan (02/26/2020 2:07 PM EMBEDDED SOFTWARE PROGRAMMER): Systolic blood pressure is mildly elevated. He gets similar or slightly higher values at home. We will increase the lisinopril to 20 mg daily. We will have him call with updated blood pressure readings in a couple of weeks. Assessment & Plan (08/27/2019 2:20 PM CDT): Blood pressure is somewhat elevated. We will check it again and adjust medications as needed. Assessment & Plan (03/05/2019 1:13 PM EMBEDDED SOFTWARE PROGRAMMER): Last night he had sudden onset of left-sided upper chest and left arm pain associated with a rapid heartbeat. He felt short of breath. Symptoms persisted so he went to the [facility]. We are getting those records. He had labs and imaging which apparently were unremarkable. He was discharged without any change in therapy according to him. Blood pressure in the office remains moderately elevated, at least systolic. We will increase his lisinopril. We will discuss with his four slide machine operator about any other changes in therapy that may be needed. Assessment & Plan (08/14/2018 3:00 PM CDT): Blood pressure is a little lower than his initial visit, but systolic could come down a bit more. We are deferring changes in his cardiac medications to Cardiology for now. An increase in the LOW-inhibitor may be appropriate. Assessment & Plan (07/29/2018 1:16 PM CDT): He has been on medication for blood pressure for a number of years now and seems to be tolerating it well. Continue same. We will check some baseline labs and have him return in two weeks to discuss results. Type 2 diabetes mellitus wit h diabetic polyneuropathy, without long-term current use of insulin 05/10/2005 Assessment & Plan (02/10/2025 9:50 AM EMBEDDED SOFTWARE PROGRAMMER): In office blood sugar 155. A1c 6.4%. down from previous 7.2% in September. Assessment & Plan (03/10/2024 3:41 PM EMBEDDED SOFTWARE PROGRAMMER): Lab Results Component Value Date HGBA1C 6.5 (H) 08/23/2023 -chronic, at goal of <7% -patient currently takes metformin 1000 mg b.i.d. -reiterated importance of diabetic foot and eye exams -most recent hemoglobin A1c shown above -will recheck lab work -continue current treatment plan Assessment & Plan (12/26/2023 9:05 PM CDT): Lab Results Component Value Date HGBA1C 6.5 (H) 08/23/2023 -chronic, stable -patient currently takes metformin 1000 mg b.i.d. -reiterated importance of diabetic foot and eye exams -most recent hemoglobin A1c shown above -will recheck lab work at future visit -continue current treatment plan Assessment & Plan (04/12/2023 5:45 PM EMBEDDED SOFTWARE PROGRAMMER): Chronic. Patient's diabetes was controlled at last routine visit. Continue current diabetic med Assessment & Plan (02/21/2023 8:02 PM EMBEDDED SOFTWARE PROGRAMMER): Chronic. Has been controlled. Encouraged healthy diet and lifestyle. Foot exam done. Stressed importance of yearly eye exam Diabetes Education Reviewed diabetic disease process, standards of care, and possible disease complications I have discussed the following steps for improving diabetic care: diabetic diet with healthy meals that are low salt, low fat, high fiber daily 30 minutes of exercise (45-60 minutes if trying to lose weight) Encouraged to loose weight if overweight/obese, or maintain a healthy body weight if BMI normal home glucose monitoring and goals (fast 70-130 and 2 hr PP <180) HgA1C goal <7% If checking home bp, goal less than 140/90 on average, even better if <130/85 Check feet daily for sores, dryness, cracking; use daily moisturizer if needed and invest in good shoes See eye doctor at least once per year and have report sent to us Assessment & Plan (11/22/2022 5:58 PM CDT): Chronic. Diabetes has been fair control for his age. Continue current dose of metformin. We will plan to see him back in 3 months for further evaluation with updated labs at that time Assessment & Plan (02/25/2021 1:52 PM EMBEDDED SOFTWARE PROGRAMMER): HbA1c is slightly elevated but acceptable. There are no definite complications of his diabetes. He can continue on metformin 500 mg twice a day. Return in six months. Lab Results Component Value Date HGBA1C 7.6 (H) 02/18/2021 Assessment & Plan (11/04/2020 4:31 PM CDT): Blood sugars are generally running around 140 mg %. HbA1c is slightly elevated but improved compared to the last one. I urged better attention to his diet. He also takes metformin. Assessment & Plan (08/26/2020 1:50 PM CDT): Fingerstick blood sugars at home are usually around 140 mg/dL. HbA1c is a little bit higher. It is acceptable for now. I encouraged attention to his diet. Continue metformin. Lab Results Component Value Date GLUCOSE 180 08/19/2020 CALCIUM 9.3 08/19/2020 SODIUM 137 08/19/2020 POTASSIUM 4.5 08/19/2020 CO2 27 08/19/2020 CHLORIDE 99 08/19/2020 BUNSER 11 08/19/2020 CREATININE 0.67 (L) 08/19/2020 Assessment & Plan (02/26/2020 2:07 PM EMBEDDED SOFTWARE PROGRAMMER): Fasting blood sugars at home are in a good range typically 120-130 mg/dL. Hemoglobin A1c is mildly elevated but acceptable. We will have him continue current therapy, check follow-up labs before his next visit in six months. Lab Results Component Value Date HGBA1C 7.4 (H) 02/19/2020 Assessment & Plan (08/27/2019 2:21 PM CDT): Blood sugars are usually 130-140 mg/dL when he checks at home, but sometimes they stray a little higher if he is not eating right. Hemoglobin A1c is in a good range. Continue current therapy and follow up in six months. Lab Results Component Value Date HGBA1C 7.0 (H) 08/13/2019 Lab Results Component Value Date GLUCOSE 163 08/13/2019 CALCIUM 9.3 08/13/2019 SODIUM 138 08/13/2019 POTASSIUM 4.4 08/13/2019 CO2 24 08/13/2019 CHLORIDE 101 08/13/2019 BUNSER 15 08/13/2019 CREATININE 0.56 (L) 08/13/2019 Assessment & Plan (02/19/2019 2:09 PM EMBEDDED SOFTWARE PROGRAMMER): He does not check blood sugars at home because they are usually normal. Last hemoglobin A1c was 7.5%. We will check another hemoglobin A1c today and also check follow-up labs before his next visit in six months. He should get his diabetic eye exam soon. Assessment & Plan (08/14/2018 3:01 PM CDT): Blood sugars are 130-140 mg%. Hemoglobin A1c was 7.1%. This represents reasonable control with diet and metformin. Continue same. He will have his eye exam and we will see him back in about six months with another hemoglobin A1c. Assessment & Plan (07/29/2018 1:17 PM CDT): He has had diabetes for the past 12 or 13 years. It is controlled diet, significant weight loss, and metformin. No known complications. The last eye exam was about a year ago, so we will get that set up. We will check some baseline labs which have not been done for about a year he says. Return in two weeks for review. Current Treatment and Therapy Plans No current plan information found. Past Treatment and Therapy Plans No past plan information found. Lifetime Dose Tracking * Chemical Lifetime Dose Automatic Entry Manual Entr y Fluoro Time 6.095 minutes 6.095 minutes 0 minutes Air kerma at the reference point (Ka,r) 43.32 mGy 4 3.32 mGy 0 mGy DLP 695 mGycm 695 mGycm 0 mGycm Resolved Problems Problem Noted Date Diagnosed Date Resolved Date Adjustment and management of cardiac pacemaker 03/30/2023 12/25/2023 Stenosis of right carotid artery 09/20/2022 02/21/2023 Assessment & Plan (11/30/2022 11:18 AM CDT): Status post right TCAR, overall doing well his neck hematoma continues to improve. From my standpoint would like him on dual anti-platelet therapy for at least 30 days (ASA and Plavix). If he needs to be on full-dose anticoagulation would recommend stopping his aspirin after a month and continuing on Plavix and anticoagulation. We will plan for repeat duplex in 6 months. Assessment & Plan (10/24/2022 3:42 PM CDT): Severe greater than 70% stenosis of the right internal carotid artery confirmed on CTA with concerning TIA like symptoms. Given his underlying radical neck dissection and neck radiation I have recommended TCAR instead of carotid endarterectomy. Risks benefits alternatives to right trans carotid artery revascularization discussed, risks including bleeding, infection, nerve injury, stroke, and need for further surgery. He wished to proceed. We will start him on dual anti-platelet therapy. Continue statin therapy. Right lumbar radiculopathy 08/17/2022 1 Left upper extremity numbness 08/14/2022 02/21/2023 Acute bronchitis 08/19/2021 04/21/2022 Assessment & Plan (08/19/2021 2:59 PM CDT): Patient presents with cough with blood tinged sputum, post nasal drip, and congestion for over 3 weeks. He denies any fever. Flu and covid 19 testing in office negative. Most likely secondary to an acute bronchitis, but will do CXR given reports of blood tinged sputum to r/o any pneumonia or other acute cardiopulmonary process. Patient will be sent antibiotic and tessalon perles to use as directed. He will f/u in 2 weeks as scheduled or sooner if needed. Acute cough 08/19/2021 03/10/2024 Assessment & Plan (02/14/2024 3:42 PM EMBEDDED SOFTWARE PROGRAMMER): Doxycycline daily for 21 days Have oral evaluation by Oral surgery Call if no improvement in Cough after three weeks Start protein shakes 2-3 per day Assessment & Plan (08/19/2021 3:00 PM CDT): Patient presents with cough x 3 weeks with some associated blood tinged sputum, most likely secondary to above. Will however, do CXR for further evaluation. We will also do labs to look for underlying source. On exam lungs are clear and oxygen saturation is normal. Will monitor closely and f/u in 2 weeks or sooner if needed. Squamous cell carcinoma of left hand 12/24/2020 10/11/2021 Orthopedic aftercare 12/02/2020 022 Acute diverticulitis 11/10/2020 022 Assessment & Plan (11/11/2020 1:18 PM CDT): CT scan done yesterday was consistent diverticulitis. WBC was normal. Other etiologies are possible. We put him on some antibiotics. We will have him follow-up early if he does not have complete resolution of symptoms, otherwise in one month. Lower abdominal pain 11/05/2020 022 Overview (11/10/2020): Diarrhea for one day followed by moderate to severe dull bilateral lower abdominal pain. No fever or blood in stools. Assessment & Plan (11/11/2020 1:17 PM CDT): His lower abdominal pain is improving. Exam also seems improved. We will have him return early as needed for any adverse trends. Assessment & Plan (11/20/2020 5:18 PM CDT): He has had some mild sharp bilateral lower abdominal pains intermittently for 10-14 days or more. He did not think much about them, but then last Sunday, the day after he was in the office for a preoperative evaluation to have hip replacement surgery, he developed more severe bilateral aching lower abdominal pain which radiated across the lower abdomen, meeting in the middle. He had a voluminous diarrheal stool without blood. He has not had a bowel movement since then. He continues to have the bilateral lower abdominal aching discomfort, but it seems to be improving slightly day by day. He is still eating. He is not running a fever. He has had some episodes of diaphoresis. He denies having any urinary symptoms such as burning or dysuria. Exam shows quiet bowel sounds and some bilateral lower abdominal tenderness with voluntary guarding and probably some mild rebound tenderness in the right lower quadrant. Rectal and exams are unremarkable. The cause of the patient's symptoms is unclear. He says he had diverticulitis a number of years ago and that it took a while for the doctors to figure it out. He has also had bilateral inguinal hernia repairs, and he thought his current pain might relate to a recurrence. Exam is suggestive of possible diverticulitis or other infectious process. We will get labs and a CT abdomen and pelvis. Depending on results, he might need to be admitted to the hospital although he says symptoms are improving slowly, so hopefully we can manage this as an outpatient. We will plan a follow-up tomorrow in the office. Primary osteoarthritis of right hip 10/25/2020 10/11/2021 Overview (10/25/2020): Added automatically from request for surgery [id number] Assessment & Plan (11/04/2020 4:31 PM CDT): He is scheduled to have his right hip replaced soon. I reviewed his preoperative labs, chest x-ray and EKG. I reviewed the recent history. There is no medical contraindication to proceeding with the surgery as planned. The perioperative management of his medications and management of the pacemaker during surgery is deferred to Dr. Heller and the anesthesiologist. Return here for routine care as scheduled. Squamous cell carcinoma of skin of face 07/30/2020 10/11/2021 Assessment & Plan (07/30/2020 12:43 PM CDT): Continue Aquaphor ointment for one more week Lesion of skin of cheek 07/07/2020 08/0 04/2021 Assessment & Plan (07/07/2020 1:10 PM CDT): Excision of Right cheek 1.5 cm x 1 cm lesion with Frozen section and possible graft versus flap repair Left Ear pinna 1 cm x 7 mm lesion excision with Frozen section and flap repair Risks and complications: Anesthesia, bleeding, infection, benign versus malignant pathology, recurrence of lesion, injury to arteries, nerves and veins, scarring and need for further treatment Skin lesion of face 07/07/2020 10/12/19 Overview (07/07/2020): Added automatically from request for surgery [id number] Skin lesion of left ear 06/07/202004/2021 Assessment & Plan (07/07/2020 1:09 PM CDT): Excision of Right cheek 1.5 cm x 1 cm lesion with Frozen section and possible graft versus flap repair Left Ear pinna 1 cm x 7 mm lesion excision with Frozen section and flap repair Risks and complications: Anesthesia, bleeding, infection, benign versus malignant pathology, recurrence of lesion, injury to arteries, nerves and veins, scarring and need for further treatment Assessment & Plan (06/07/2020 1:43 PM CDT): Recheck the left 1.1cm ear pinna helix lesion if not resolved will recommend excision with flap repair Continue Aquaphor ointment to area as often as possible Also recheck Right cheek 2 cm lesion - photos in media Insect bite of left lower leg 10/16/2019 03/07/2020 Overview (03/07/2020): See ADAN Goyal office note. Assessment & Plan (10/16/2019 1:20 PM CDT): Patient appears to be 4 bites on left lower leg at the knee and below. He also has what appears to be bites on the left upper extremity. They are associated with itching and erythema. He reports redness continues to decrease since noting initially and no warmth noted at this time. Most likely he had a histamine response to irritant. He reports noting bites after working in his garden over the weekend, which is most likely source. We discussed using benadryl every 6 hours as needed for itching, along with a non-sedating daily anti-histamine such as zyrtec and claritin. Patient reports concern over superimposed infection such as a cellulitis with his history of diabetes and cancer. He will be provided with antibiotic which he can begin should redness increase in size or notes warmth. He is to call with any worsening or persistent symptoms. Referred otalgia of both ears 07/30/2019 10/11/2021 Assessment & Plan (07/30/2019 2:35 PM CDT): Call Dentist for evaluation Avoid ear cleaning techniques Avoid water to ears Softer foods until able to see the Dentist Follow up in 4 months Chronic diffuse otitis externa of both ears 03/13/2019 10/11/2021 Assessment & Plan (06/08/2020 9:54 PM CDT): Avoid ear cleaning techniques Avoid water to ears Recheck the left 1.1cm ear pinna helix lesion if not resolved will recommend excision with flap repair Continue Aquaphor ointment to area as often as possible Also recheck Right cheek 2 cm lesion - photos in media Assessment & Plan (12/01/2019 2:24 PM CDT): Avoid ear cleaning techniques Avoid water to ears Follow up in 6 months for ear check, earlier if ears feel plugged Assessment & Plan (07/30/2019 2:35 PM CDT): Call Dentist for evaluation Avoid ear cleaning techniques Avoid water to ears Softer foods until able to see the Dentist Follow up in 4 months Assessment & Plan (03/13/2019 3:25 PM EMBEDDED SOFTWARE PROGRAMMER): Follow up in 6 months for ear check Call with hearing loss in the meantime Avoid ear cleaning techniques Avoid water to ears Excess ear wax 08/12/2018 12/25/2023 Assessment & Plan (11/05/2023 2:13 PM CDT): Avoid ear cleaning techniques Avoid water to ears Call if ear drainage develops for ear drops - Cipro drops Follow up in 4 months for ear check Assessment & Plan (07/06/2023 12:28 PM CDT): Avoid ear cleaning techniques Avoid water to ears Follow up in 4 months for ear check Assessment & Plan (05/10/2022 2:02 PM EMBEDDED SOFTWARE PROGRAMMER): Avoid ear cleaning techniques Avoid water to ears Follow up in 6 months Assessment & Plan (01/10/2022 1:37 PM CDT): Avoid ear cleaning techniques Recheck in 6 months Assessment & Plan (08/12/2018 2:34 PM CDT): Avoid ear cleaning techniques Avoid water to ears Offered him a one year follow up and he wished to call when needed Encounter for nonprocreative genetic counseling 07/17/2017 08/21/2020 Overview (08/21/2020): [facility]: 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 Assessment & Plan (09/05/2021 1:25 PM CDT): Avoid ear cleaning techniques Continue Hearing aids Follow up in 4 months, earlier if needed Assessment & Plan (03/07/2021 11:46 AM EMBEDDED SOFTWARE PROGRAMMER): Avoid ear cleaning techniques Avoid water to ears Continue hearing aids Follow up for ear check in 6 months Assessment & Plan (06/08/2020 9:54 PM CDT): Avoid ear cleaning techniques Avoid water to ears Recheck the left 1.1cm ear pinna helix lesion if not resolved will recommend excision with flap repair Continue Aquaphor ointment to area as often as possible Also recheck Right cheek 2 cm lesion - photos in media Assessment & Plan (12/01/2019 2:07 PM CDT): Avoid ear cleaning techniques Avoid water to ears Follow up in 6 months for ear check, earlier if ears feel plugged Assessment & Plan (03/13/2019 3:26 PM EMBEDDED SOFTWARE PROGRAMMER): Follow up in 6 months for ear check Call with hearing loss in the meantime Avoid ear cleaning techniques Avoid water to ears Assessment & Plan (07/29/2018 1:15 PM CDT): He has had extensive head and neck surgery and radiation therapy. Since then, he says he produces excessive wax which has unusual characteristics. It tends to get impacted and needs to be removed with special equipment by ENT. On exam today, he does have bilateral impacted ear wax. We will refer to Dr. Muro for further evaluation and management. 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 Probably from [facility] records. Basal cell carcinoma of nose 12/20/2015 10/11/2021 Overview (09/20/2019): S/p Mohs --16 Exposure to radiation 07/20/20152020 Overview (08/21/2020): Probably from [facility] records. Head and neck cancer (CMS/HCC) 05/24/2015 10/11/2021 Overview (09/20/2019): Left facial disease - underwent resection - high risk 03/2015-06/2015: FHX with radiotherapy - every other week Scar condition and fibrosis of skin 03/02/2015 12/25/2023 Overview (02/25/2020): From prior H&N surgery, XRT. Second degree AV block, Mobitz type II 02/18/2015 10/11/2021 Overview (02/25/2020): S/P PPM History of shingles 02/18/2015 10/12/19 Diabetic peripheral neuropathy ([facility]) 02/18/2015 10/11/2021 Assessment & Plan (03/07/2020 11:40 AM EMBEDDED SOFTWARE PROGRAMMER): He actually has excellent protective sensation in his feet, even has hypersensitivity sensations. Some of his neuropathic symptoms are probably due to past chemotherapy. Chronic lymphocytic leukemia ([facility]) 11/28/2011 10/11/2021 Overview (09/20/2019): 05/2008: CLL - trisomy 12 detected 07/2013-10/2013: Bendamustine/Rituxan x 6 cycles Assessment & Plan (08/26/2020 1:54 PM CDT): He is being monitored for a history of CLL which appears to be in remission after chemotherapy about six years ago.
--- OUTSIDE RECORDS SUMMARY | 2025-02-10 11:26 | XMS_ITS | Clinical Summary ---
Author Organization [facility] Address [address] [place] [address] Care Team Providers Care Analytics Specialist Name Role Phone Mansoor Sheets MD Primary Care Provider [phone] Source Comments [facility],non-owned Affiliates and Associated Physician Practices is amultiple site organization consisting of ambulatory clinics and hospital sitesin [place], [place], [place] and [place]. This disclosure is being madepursuant to the Care Everywhere program and may not contain all information available regarding this patient. Last updated 17.[facility] Allergies Active Allergy Reactions Criticality Noted Date Comments Sulfa Drugs Rash Medium 08/19/2013 Medications * Be aware that medications may not be up to date on this document. Alwaysverify current medications with the patient. Ascorbic Acid (VITAMIN C) 100 MG Take 5 (five) tablets by mouth once daily Active Cinnamon 500 MG Take 1 (one) tablet by mouth once daily Active Coenzyme Q10 10 MG Take 100 mg by mouth Active ibuprofen (MOTRIN) 200 MG tablet Active ketoconazole (NIZORAL) 2 % shampoo 8 Active lisinopril (PRINIVIL; ZESTRIL) 10 MG tablet Take 2 (two) tablets by mouth 2 times daily 0 Active metFORMIN (GLUCOPHAGE) 500 MG tablet Take 2 (two) tablets by mouth 2 times daily 0 Active simvastatin (ZOCOR) 20 MG tablet TAKE 1 TABLET BY MOUTH ONCE DAILY AT NIGHT. 0 Active Multiple Vitamin (MULTI-VITAMIN) TABS Take 1 (one) tablet by mouth once daily Active fluorouracil (EFUDEX) 5 % cream APPLY THIN LAYER TOPICALLY TO FOREHEAD TWICE DAILY FOR 4 WEEKS 1 Active cephalexin (Keflex) 500 MG capsule Take by mouth once daily For 7 days 3 Active Eliquis 5 MG tabletIndications :Paroxysmal atrial fibrillation (HCC) TAKE 1 TABLET BY MOUTH TWICE DAILY 180 tablet 3 4 Active metoprolol succinate XL 24hr (Toprol XL) 100 MG tabletIndications :Paroxysmal atrial fibrillation (HCC),Essential hypertension TAKE 1 TABLET BY MOUTH EVERY DAY 90 tablet 4 Active Active Problems Problem Noted Date Diagnosed Date Skin lesion of face 07/07/2020 Overview (09/09/2020): Last Assessment & Plan: Excision of Right cheek 1.5 cm x 1 cm lesion with Frozen section and possible graft versus flap repair Left Ear pinna 1 cm x 7 mm lesion excision with Frozen section and flap repair Risks and complications: Anesthesia, bleeding, infection, benign versus malignant pathology, recurrence of lesion, injury to arteries, nerves and veins, scarring and need for further treatment Added automatically from request for surgery [id number] Referred otalgia of both ears 07/30/2019 Overview (09/09/2020): Last Assessment & Plan: Call Dentist for evaluation Avoid ear cleaning techniques Avoid water to ears Softer foods until able to see the Dentist Follow up in 4 months Chronic diffuse otitis externa of both ears 04/2019 Overview (09/09/2020): Last Assessment & Plan: Avoid ear cleaning techniques Avoid water to ears Recheck the left 1.1cm ear pinna helix lesion if not resolved will recommend excision with flap repair Continue Aquaphor ointment to area as often as possible Also recheck Right cheek 2 cm lesion - photos in media Sensorineural hearing loss ( SNHL) of left ear with restricted hearing of right ear 08/12/2018 Overview (09/09/2020): Last Assessment & Plan: Continue hearing aids Wax in ear 08/12/2018 Overview (09/09/2020): Last Assessment & Plan: Avoid ear cleaning techniques Avoid water to ears Offered him a one year follow up and he wished to call when needed Thrombocytopenia 08/07/2018 Overview (09/09/2020): Mild, stable, probably residual of treatment of CLL. Last Assessment & Plan: His blood count is checked regularly in Oncology where they are monitoring a history of CLL which appears to be in remission. Lab Results Component Value Date WBC 5.5 05/05/2020 HGB 15.0 05/05/2020 HCT 42.1 05/05/2020 MCV 88.8 05/05/2020 LABPLAT 116 (L) 05/05/2020 AV block, complete 05/17/2018 Assessment & Plan (09/04/2019 9:50 AM CDT): Pacemaker was interrogated today with results as follows: Device: statusboom Disputanta Mode: DDDR 60-110 Battery: Middle of Life; [...] None. 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 Atrial fibrillation 05/17/2018 Essential hypertension 05/17/2018 Type 2 diabetes mellitus wit hout complication, without long-term current use of insulin 05/17/2018 Pacemaker 05/17/2018 Chronic systolic heart failure 10/31/2017 Overview (09/09/2020): LVEF 40-45% on echo in July 2017, [facility]. Last Assessment & Plan: He does not have the energy he [...] Lungs are clear and oxygenation is normal. 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 CT on 04/02/2017: Unchanged nonspecific nodule along the inferior aspect of the left thyroid lobe. Malignant neoplasm skin of face 03/09/2015 Scar condition and fibrosis of skin 03/02/2015 Overview (09/09/2020): From prior H&N surgery, XRT. 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 Some of his neuropathic symptoms are probably due to past chemotherapy. History of pacemaker 02/18/2015 Overview (09/09/2020): statusboom, put in 2014 History of shingles 02/18/2015 Hyperlipidemia 02/18/2015 Hyperlipidemia associated with type 2 diabetes hector doshi 02/18/2015 Overview (09/09/2020): Last Assessment & Plan: He is on generic simvastatin, tolerating well. Continue same. He sees Cardiology at [facility] for regular appointments. [place] cell carcinoma 01/27/2015 Overview (09/09/2020): Diagnosed/treated in [place]. Records in Care Everywhere. Chronic lymphocytic leukemia 11/28/2011 Overview (09/09/2020): 05/2008: CLL - trisomy 12 detected 07/2013-10/2013: Bendamustine/Rituxan x 6 cycles 05/2008: CLL - trisomy 12 detected 07/2013-10/2013: Bendamustine/Rituxan x 6 cycles Last Assessment & Plan: He is being monitored for a history of CLL which appears to be in remission after chemotherapy about six years ago. Osteoarthritis of multiple joints 07/10/2008 Overview (09/09/2020): Multiple joints hurt. 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 Last Assessment & Plan: He has been having trouble with left hip pain. He thinks it needs to be replaced. He had similar problems with his right hip 10 or 15 years ago and had a good result from joint replacement. He will check with the orthopedic surgeons at [facility] per his preference. Personal history of CLL (chronic lymphocytic sidney kemia) 07/11/2007 Overview (09/09/2020): Monitored for a while, then received chemo and went into remission. Last Assessment & Plan: His CLL is in remission. Platelets are slightly low but there is no evidence of any relapse of leukemia. Continue to monitor at least annually. Resolved Problems Problem Noted Date Diagnosed Date Resolved Date Bilateral impacted cerumen 07/10/2016 0 09/23/2020 Overview (09/09/2020): Chronic, needs ENT attention for removal. Last Assessment & Plan: Avoid ear cleaning techniques Avoid water to ears Recheck the left 1.1cm ear pinna helix lesion if not resolved will recommend excision with flap repair Continue Aquaphor ointment to area as often as possible Also recheck Right cheek 2 cm lesion - photos in media Immunizations Immunization Administration Dates Next Due INFLUENZA VACCINE, TRIV. (AF LURIA, FLUZONE TRIVALENT; 6MO+) (IIV3) 12/19/2012,01/17/2012 INFLUENZA VACCINE 12/30/2019 INFLUENZA VACCINE, HIGH-DOSE , QUADR. 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 Gender Identity Not on file Sexual Orientation Not on file Last Filed Vital Signs Vital Sign Reading Time Taken Comments Blood Pressure 180/82 09/21/2022 1:31 PM CDT Pulse 68 09/21/2022 1:31 PM CDT Temperature 36.8 C (98.2 F) 10/26/2020 2:11 PM CDT Respiratory Rate - - Oxygen Saturation 98% 09/21/2022 1:31 PM CDT Inhaled Oxygen Concentration - - Weight 68.9 kg (152 lb) 09/21/2022 1:31 PM CDT Height 175.3 cm (5' 9) 09/15/2021 1:41 PM CDT Body Mass Index 22.45 09/15/2021 1:41 PM CDT Plan of Treatment Health Maintenance Due Date Last Done Comments MEDICARE AWV 12 MONTHS 1943 DIABETES-SERUM CREATININE 1961 ZOSTER VACCINE (1 of 2) 1962 Respiratory Syncytial Virus (RSV) Vaccine Pt: or over 60 yrs (1 - 1-dose 75+ series) 2018 DIABETES-FOOT EXAM WITH MONOFILAMENT 05/17/2018 DIABETES-HGB A1C 05/17/2018 DIABETES RETINOPATHY SCREENING 01/03/2024 01/02/2022, 01/03/2021 DEPRESSION SCREENING 03/12/2024 DIABETES - URINE PROTEIN SCREENING 03/12/2024 COVID-19 VACCINE (4 - 2024- season) 2024 01/16/2021, 06/20/2020, 05/25/2020 INFLUENZA VACCINE (#1) 2024 , 02/12/2021, 12/30/2019, Additional history exists DTAP/TDAP/TD VACCINES (2 - Td or Tdap) 09/09/2027 09/08/2017 PNEUMOCOCCAL VACCINE 50+ Completed 08/27/2019, 02/09 HEPATITIS B VACCINE Aged Out No longe r eligible based on patient's age to complete this topic HIB VACCINE Aged Out No longer eligi ble based on patient's age to complete this topic HPV VACCINE Aged Out No longer eligi ble based on patient's age to complete this topic MENINGOCOCCAL (Group B) VACCINE SHARED DECISION-MAKING Aged Out No longer eligible based on patient's age to complete this topic MENINGOCOCCAL GROUPS A/C/Y/W VACCINE Aged Out No longer eligible based on patient's age to complete this topic Procedures Procedure Name Priority Date/Time Associated Diagnosis Comments EYE EXAM 01/02/2022 from Last 3 Months or Most Recently Relevant to Health Maintenance Results * EYE EXAM (01/02/2022) Anatomical Region Laterality Modality Other 01/02/2022 Narrative 01/02/2022 Ordered by an unspecified provider. us Scanned Document SCANNING ONLY Final Result from Last 3 Months or Most Recently Relevant to Health Maintenance Insurance MEDICARE [facility] MEDIC[facility] Care Teams Analytics Specialist Relationship Specialty Start Date End Date Mansoor Sheets MD [address] [place] [id number] PCP - General Internal Medicine 10/26/20
--- OUTSIDE RECORDS SUMMARY | 2025-02-10 11:26 | XMS_ITS | Encounter Summary ---
Author Organization [facility] Address [address] [place] [address] Care Team Providers Care Beading Machine Operator Name Role Phone Jamari Mayen MD Unavailable [phone] Mansoor Sheets MD Primary Care Provider Jayla Muro DO Unavailable [phone] Paresh Klein MD Unavailable [phone] Pascual Rock MD Unavailable [phone] Augie Heller MD Unavailable Oma Chris MD Unavailable [phone] Natalie Vang NP Unavailable [phone] Jennifer Taylor MD Primary Care Provider Gonsalo Stern, Blake SHOEMAKER Unavailable Norbert Martinez MD Unavailable Zachary Gustafson MD Unavailable [phone] Eric Herron OD Unavailable [phone] Diego Mckeon MD Unavailable [phone] Glenny Vasquez MD Unavailable [phone] Jeramy Vargas MD Unavailable [phone] Augusta Lucas MA Unavailable Andreas Vargas MD Unavailable Guido Baez MD Unavailable [phone] Diego Mckeon MD Unavailable [phone] Lucho Thompson RN Unavailable [phone] Chanell Padgett NP Primary Care Provider Jamil Martinez MD Unavailable [phone] Guido Albrecht MD Unavailable [phone] Eyal Pitts MD Primary Care Provider [phone] Encounter Details Date Type Department Care Team (Late st Contact Info) Description 10/28/2020 Telephone [facility] [address] [place] [id number] Kaylen Bassett, RT Social History Tobacco Use Types Packs/Day Years Used Date Smoking Tobacco: Never Smokeless Tobacco: Never Alcohol Use Standard Drinks/Week Comments Never 0 (1 standard drink = 0.6 oz pur e alcohol) AUDIT-C Answer Date Recorded Q1: How often do you have a drink containing alc ohol? Monthly or less 07/19/2020 Q2: How many drinks containi ng alcohol do you have on a typical day when you are drinking? 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 Gender Identity Not on file Sexual Orientation Not on file documented as of this encounter Plan of Treatment Not on file documented as of this encounter Visit Diagnoses Not on filedocumented in this encounter Additional Health Concerns Infection Onset Date Last Indicated Resolved Time COVID: Suspected 08/19/2021 08/19/2021 08/19/2021 2:47 PM CDT documented as of this encounter Care Teams Beading Machine Operator Relationship Specialty Start Date End Date Mansoor Sheets MD [address] [place] [address] PCP - General Infectious Diseases 07/29/18 10/10/21 Jennifer Taylor MD [address] [place] [address] PCP - General Family Practice 10/11/21 12/24/23 Chanell Padgett, PARTS SALVAGER [address] [place] [address] PCP - General Family Medicine 12/25/23 09/09/24 Eyal Pitts MD [address] [facility] [address] [place] [address] PCP - General Family Medicine 09/10/24 Jamari Mayen MD Consulting Physician Cardiology 07/27/18 12/13/21 Jayla Muro DO [address] [place] [address] Consulting Physician Otolaryngology 08/24/18 Paresh Klein MD [address] [place] [address] Consulting Physician Ophthalmology 08/27/19 05/04/22 Pascual Rock MD [address] [place] [address] Consulting Physician Medical Oncology 05/05/20 05/02/21 Augie Heller MD [address] [place] [address] Surgeon Orthopedic Surgery 11/04/20 05/04/22 Oma Chris MD [address] [place] [address] Referring Physician Dermatology 01/18/21 05/04/22 Natalie Vang, PARTS SALVAGER [address] [place] [address] Nurse Practitioner Medical Oncology 05/03/21 Blake Brush Jr., DPM [address] [place] [address] Referring Physician Podiatry 12/14/21 02/20/23 Norbert Martinez MD [address] [place] [address] Consulting Physician Medical Oncology 12/14/21 05/03/22 Zachary Gustafson MD [address] [facility] [address] [place], [place] [address] Cardiovascular Disease 12/14/21 Eric Herron, J[address] [place] [address] Optometry 12/14/21 Diego Mckeon MD [address] [facility] [phone] [place] [address] Consulting Physician Plastic Surgery 04/04/22 04/04/22 Glenny Vasquez MD [address] [facility] [phone] [place] [address] Referring Physician Dermatology 04/10/22 09/09/24 Jeramy Vargas MD [facility] [address] [phone] [place] [address] Medical Oncologist/Hematologi Hematology and Oncology 05/04/22 Augusta Lucas MA [address] [place] [address] [address] [place] [address] ACO Care Rn Maternal Child 11/17/22 11/20/22 Andreas Vargas MD [address] [place] [address] [address] [place] [address] Consulting Physician Cardiology 02/21/23 09/09/24 Guido Baez MD [address] [place] [address] [address] [place] [address] Consulting Physician Neurology 02/21/23 Diego Mckeon MD [address] [place] [address] [address] [place] [address] Consulting Physician Plastic Surgery 02/21/23 09/09/24 Lucho Thompson, SIDNEY [address] [place] [address] [address] [place] [address] Recruitment Intern 11/16/23 11/16/23 Jamil Martinez MD [address] [place] [address] [address] [place] [address] Medical Oncologist/Hematologi Medical Oncology 05/22/24 Guido Albrecht MD [address] [address] Consulting Physician Cardiology 09/10/24 Magdy Tejeda MD Consulting Physician Plastic Surgery 04/14/24 documented as of this encounter
--- OUTSIDE RECORDS SUMMARY | 2025-02-10 11:27 | XMS_ITS | Clinical Summary ---
Author Organization [facility] [address] Address [address] [place] [address] Phone Care Team Providers Care It Application Development Manager Name Role Phone Jayla Muro DO Unavailable [phone] Natalie Vang NP Unavailable [phone] Eric Herron OD Unavailable [phone] Jeramy Vargas MD Unavailable [phone] Guido Baez MD Unavailable [phone] Jamil Martinez MD Unavailable [phone] Guido Albrecht MD Unavailable [phone] Eyal Pitts MD Primary Care Provider Allergies Active Allergy Reactions Criticality Noted Date Comments Sulfa (Sulfonamide Antibiotics) Rash Medium 08/2019 Medications cholecalciferol (VITAMIN D-3) 5,000 unit tabletIndication s:Vitamin D Deficiency Take 1 tablet (5,000 Units total) by mouth every morning Active ketoconazole (NIZORAL) 2 % shampoo APPLY TO THE AFFECTED AREA AND LET SIT FOR 3 TO 5 MINUTES EVERY DAY THEN RINSE OFF 02/27/20 23 Active Eliquis 5 mg tablet Take 1 tablet (5 mg total) by mouth daily 12/02/19 24 Active clobetasoL-skin cleanser no.28 0.05 % kit,shampoo and cleanser Apply topically Acti ve clopidogreL (PLAVIX) 75 mg tablet TAKE 1 TABLET(75 MG) BY MOUTH DAILY 30 tablet 11 03/06/20 24 Active Additional Information Patient taking differently:75 mg oral Daily,Taking half tablet, Reported on 02/10/2025 fluorouraciL (EFUDEX) 5 % cream Apply topically daily 02/23/20 24 Active chlorhexidine (PERIDEX) 0.12 % oral rinse 04/28/19 25 Active coenzyme Q10 100 mg capsule Take 1 capsule (100 mg total) by mouth daily Active arginine, L-arginine, 500 mg capsule Take by mouth Activ e turmeric root extract 500 mg capsule Take by mouth Active electrolytes-dex trose (PEDIALYTE) solution Take by mouth as needed Active cinnamon bark-chromium picolin 500-100 mg-mcg capsule Take by mouth A ctive fluocinolone in oil (DermOtic) 0.01 % dropsIndications :Chronic eczematous otitis externa of both ears ADMINISTER 5 DROPS INTO EACH EAR TWO TIMES A DAY FOR 14 DAYS. 20 mL 1 06/27/19 25 Active ciprofloxacin (CILOXAN) 0.3 % ophthalmic solutionIndicati ons:Otorrhea of right ear 7 drops into RIGHT EAR, NOT EYE, twice daily for 10 days 10 mL 1 07/09/19 25 Active metFORMIN (GLUCOPHAGE) 500 mg tabletIndication s:Type 2 diabetes mellitus with diabetic polyneuropathy, without long-term current use of insulin (HCC) Take 2 tablets (1,000 mg total) by mouth 2 (two) times a day with meals 360 tablet 1 07/11/19 25 Active Additional Information Patient taking differently: 500 mgoral3 times daily, Reported on 02/10/2025 vitamin b complex tablet Take 1 tablet by mouth once a week Active QUERCETIN ORAL Take by mouth once a week Active simvastatin (ZOCOR) 20 mg tabletIndication s:Hyperlipidemia associated with type 2 diabetes mellitus (HCC) TAKE 1 TABLET(20 MG) BY MOUTH EVERY NIGHT 90 tablet 1 08/30/19 25 Active amLODIPine (NORVASC) 5 mg tabletIndication s:Hypertension associated with type 2 diabetes mellitus (HCC),Resistant hypertension TAKE 1 TABLET(5 MG) BY MOUTH DAILY 90 tablet 1 09/12/19 25 Active lisinopriL (PRINIVIL,ZESTRI L) 20 mg tabletIndication s:Hypertension associated with type 2 diabetes mellitus (HCC) TAKE 1 TABLET(20 MG) BY MOUTH TWICE DAILY 180 tablet 1 09/19/19 25 Active tobramycin-dexAM ETHasone (TOBRADEX) ophthalmic solutionIndicati ons:Otorrhea of right ear,Otorrhea of left ear 7 drops into EACH EAR, NOT EYE, twice daily for 14 days 10 mL 1 10/14/19 25 Active blood glucose diagnostic (glucose blood) strip For daily blood glucose monitoring once daily. Dispense freestyle freedom brand 100 each 11 10/25/19 25 026 Active empagliflozin (Jardiance) 10 mg tabletIndication s:type 2 diabetes mellitus Take 1 tablet (10 mg total) by mouth daily 30 tablet 3 09/29/19 25 025 Discontin ued(Patie nt Reported) Active Problems Problem Noted Date Diagnosed Date Abdominal pain, acute 02/10/2025 Assessment & Plan (02/10/2025 9:50 AM FLUE CLEANER): Shortness of breath 02/10/2025 Assessment & Plan (02/10/2025 9:50 AM FLUE CLEANER): Interstitial lung disease 09/10/2024 Otorrhea of right [...] 10 days Follow up as scheduled in [place] Oropharyngeal dysphagia 06/16/2024 Assessment & Plan (06/16/2024 1:21 PM CDT): Avoid ear cleaning techniques Avoid water to ears Follow up in 4 months Follow up before then for coughing up blood Modified Barium swallow Medicare annual wellness visit, subsequent 03/10 Assessment & Plan (03/10/2024 1:10 PM FLUE CLEANER): We discussed a comprehensive list of medical conditions and proposed recommendations for each. We discussed the importance of increased exercise, fall prevention, proper nutrition, and suggested joining [facility] to accomplish most of these goals. Patient was given an age appropriate Medicare preventive services checklist. Please see the EMR regarding details of their health risk assessment and preventive services checklist. Preventative health care 03/10/2024 Assessment & Plan (03/10/2024 4:48 PM FLUE CLEANER): - New or chronic worsening conditions: no [...] 02/14/2024 Assessment & Plan (02/14/2024 3:41 PM FLUE CLEANER): Doxycycline daily for 21 days Have oral evaluation by Oral surgery Body mass index (BMI) of 24.0 to 24.9 in adult 1 Assessment & Plan (03/10/2024 1:10 PM FLUE CLEANER): Wt Readings from Last 3 Encounters: 03/10/24 [...] Drops Assessment & Plan (04/06/2023 12:10 PM FLUE CLEANER): Ciprofloxacin 7 drops into LEFT EAR, NOT EYE, twice daily for 10 days Avoid ear cleaning techniques Avoid water to ears How to Use Ear Drops discussed and Handout provided senior care (current) use of anticoagulants 2022 Overview (02/21/2023): Bleeding risk discussed. Given patient is concerned about easy bleeding he may want to discuss if he has a candidate for a Watchman with his i&c tech Assessment & Plan (03/10/2024 1:11 PM FLUE CLEANER): -chronic, stable -currently takes Eliquis 5 mg b.i.d. -associated with persistent AFib -follows with cardiology -continue current treatment plan Assessment & Plan (12/26/2023 7:39 PM CDT): Lab Results Component Value Date INR 1.2 11/02/2022 INR 1.2 11/17/2020 -chronic, stable -currently takes Eliquis 5 mg b.i.d. -associated with persistent AFib -follows with cardiology -continue current treatment plan Assessment & Plan (04/12/2023 5:47 PM FLUE CLEANER): Patient continues have some easy bleeding tendencies [...] blood Assessment & Plan (02/14/2024 3:41 PM FLUE CLEANER): Avoid ear cleaning techniques Avoid water to ears Recheck in ears in 4 months Assessment & Plan (12/04/2022 11:33 AM CDT): Avoid ear cleaning techniques Avoid water to ears Follow up 4-6 months for ear canal check Resistant hypertension 11/22/2022 Assessment & Plan (12/11/2023 7:43 AM CDT): Stable continue metoprolol Assessment & Plan (02/21/2023 8:05 PM FLUE CLEANER): Blood pressures have been very variable over [...] 11/22/2022 Assessment & Plan (02/10/2025 9:50 AM FLUE CLEANER): Assessment & Plan (12/26/2023 9:07 PM CDT): -chronic, stable -patient currently does not require medication for this -patient denies any worsening of depressed mood, thoughts of harming herself or others, or worsening anxiety -encouraged patient to reach out to office if anxiety worsens -continue current treatment plan Assessment & Plan (02/21/2023 8:05 PM FLUE CLEANER): Patient does have a degree of mild [...] duplex Assessment & Plan (04/12/2023 5:48 PM FLUE CLEANER): Status post intervention last year. Remains on antiplatelet agent for now Assessment & Plan (02/21/2023 8:05 PM FLUE CLEANER): Status post carotid stenting earlier this year. [...] (03/30/2022): Added automatically from request for surgery [id number] History of arthroplasty of right hip 11/16/2021 Sensorineural hearing loss ( SNHL) of left ear with restricted hearing of right ear 08/12/2018 Assessment & Plan (03/13/2019 3:25 PM FLUE CLEANER): Continue hearing aids Assessment & Plan (08/12/2018 2:23 PM CDT): Hearing test Thrombocytopenia 08/07/2018 Overview (02/18/2019): Mild, stable, probably residual of treatment of CLL. Assessment & Plan (04/12/2023 5:48 PM FLUE CLEANER): Patient does have a chronic history of thrombocytopenia. This combined with antiplatelet agent and anticoagulation likely predisposes him to increased bleeding risk. Blood counts were checked just 1 month ago so we deferred today Assessment & Plan (02/21/2023 8:04 PM FLUE CLEANER): Chronic. Has a degree of persistent mild [...] Noted on pacer checks, started on anticoagulation, [facility]. Assessment & Plan (03/10/2024 3:39 PM FLUE CLEANER): -chronic, stable -noted prior to pacer in [...] specialist Assessment & Plan (04/12/2023 5:45 PM FLUE CLEANER): Chronic. Patient remains on chronic anticoagulation for stroke prevention. Assessment & Plan (02/21/2023 8:04 PM FLUE CLEANER): Chronic. Follows with cardiology. Discussed stroke risk. Patient is having some issues with bleeding which is why Eliquis was decreased previously from 5 mg twice daily to 2.5 mg twice daily. Patient may want to discuss having a Watchman device with his i&c tech given their concerns about bleeding risk with his chronic platelet disorder Assessment & Plan (11/22/2022 5:58 PM CDT): Chronic. On beta-alok. His anticoagulation is currently on hold due to the postoperative hematoma from the carotid surgery. He should restarted once vascular clear some given his stroke risk Assessment & Plan (02/25/2021 1:56 PM FLUE CLEANER): He is on Eliquis and a beta-alok. [...] list. Assessment & Plan (02/26/2020 2:11 PM FLUE CLEANER): He has a pacemaker. Heart rhythm is regular at this time. He continues on Eliquis and a beta-alok. Assessment & Plan (08/27/2019 2:19 PM CDT): Heart rhythm is regular because he has a pacemaker. He is on Eliquis. Continue current therapy. Keep followups with Cardiology as well. Assessment & Plan (02/19/2019 2:05 PM FLUE CLEANER): Heart rhythm is irregular. Rate is controlled. Continue beta-alok and anticoagulation. Assessment & Plan (08/14/2018 2:59 PM CDT): Heart rate is controlled. He is on Eliquis. He has a i&c tech in the local area that he will be following up with. Assessment & Plan (07/29/2018 1:14 PM CDT): Heart rhythm is regular, probably because he has a pacemaker. He is on Eliquis for underlying atrial fibrillation seen on a recent pacemaker check in March. Continue current medications. He has a i&c tech at [facility] that he will be seeing regularly as well. Chronic systolic heart failure 10/31/2017 Overview (07/27/2018): LVEF 40-45% on echo in July 2017, [facility]. Assessment & Plan (03/10/2024 3:40 PM FLUE CLEANER): -chronic, stable -currently takes metoprolol 100 mg -follows with cardiology -patient denies any increased fatigue, shortness of breath, chest pressure -continue current treatment plan with specialist Assessment & Plan (04/12/2023 5:45 PM FLUE CLEANER): Currently appears compensated. No signs of decompensation. Doubtful this is contributing to his current symptoms Assessment & Plan (02/21/2023 8:03 PM FLUE CLEANER): Chronic. Compensated. Follows with cardiology. 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 Symptoms relatively compensated. Monitor Assessment & Plan (02/25/2021 1:56 PM FLUE CLEANER): He has a mild decrease in LVEF. He is on an Low inhibitor and a beta-alok. He is not requiring a diuretic. He will keep followups with Cardiology. Assessment & Plan (11/04/2020 4:33 PM CDT): He has a mildly diminished LVEF. He is on medical therapy and seems well compensated. He saw his i&c tech for a clearance, and they had no [...] normal. Assessment & Plan (02/26/2020 2:10 PM FLUE CLEANER): He seems to be well compensated on current therapy. Continue same. Keep followups with Cardiology. Assessment & Plan (08/27/2019 2:19 PM CDT): This is clinically and echocardiographically fairly mild. He is doing well on current therapy with no swelling in his legs. Continue same and follow-up in six months. Assessment & Plan (02/19/2019 2:06 PM FLUE CLEANER): He seems to be fairly well compensated. [...] followups with Cardiology. Pacemaker 05/02/2016 Overview (04/10/2024): [employer] Accolade Dual Pacemaker. Dx; CHB, SSS, PAF. DOI 04/25/2023-Dr Mathews. [facility]. Latitude remote. Assessment & Plan (12/26/2023 8:58 PM CDT): -chronic, stable -follows with cardiology -placed due to complete heart block -recent revision earlier this year -continue current treatment plan with the specialist Assessment & Plan (02/21/2023 8:02 PM FLUE CLEANER): Chronic. Is seeing new i&c tech. Defer when he is new for possible pacemaker exchange to Special Assessment & Plan (11/04/2020 4:32 PM CDT): He has atrial and ventricular pacing. He saw his i&c tech at [facility] who cleared him for the upcoming hip surgery. AV block, complete 05/02/2016 Overview (02/25/2020): Last Assessment & Plan: Pacemaker was interrogated today with results as follows: Device: [employer] Honaker Mode: DDDR 60-110 Battery: Middle of Life; [...] None. From patient's records from his prior i&c tech a recent echo showed ejection fraction of about 40%. Assessment & Plan (12/26/2023 9:02 PM CDT): -chronic, stable -currently has pacemaker in place -also takes metoprolol 100 mg daily -follows with cardiology -continue current treatment plan with specialists Assessment & Plan (04/12/2023 5:45 PM FLUE CLEANER): Chronic. Has a pacemaker in place. He reports he is due for possible revision later this year Assessment & Plan (02/21/2023 8:03 PM FLUE CLEANER): Chronic. Follows with cardiology. Has pacemaker Assessment & Plan (07/29/2018 1:15 PM CDT): He has a pacemaker. Cardiac rhythm is regular. Thyroid nodule 04/05/2015 Overview (08/21/2020): Likely from [facility] records. CT on 04/02/2017: Unchanged nonspecific nodule along the inferior aspect of the left thyroid lobe. Aortic stenosis 02/19/2015 Overview (09/20/2019): Mild by TTE Assessment & Plan (04/12/2023 5:46 PM FLUE CLEANER): Chronic. Has a degree of mild aortic stenosis. Low suspicion this is contributing to his current episode Hyperlipidemia associated with type 2 diabetes hector doshi 02/18/2015 Assessment & Plan (12/17/2024 10:09 AM CDT): Stable continue simvastatin Assessment & Plan (06/20/2024 10:34 AM CDT): Stable continue simvastatin Assessment & Plan (03/10/2024 3:39 PM FLUE CLEANER): -chronic, stable -currently takes simvastatin 20 mg [...] simvastatin Assessment & Plan (02/21/2023 8:05 PM FLUE CLEANER): Tolerates cholesterol medication. Continue. Risk factor modification recommended. LDL goal less than 70 Assessment & Plan (11/22/2022 5:59 PM CDT): Chronic. LDL goal less than 70. His cholesterol has been near goal with simvastatin so he deferred change to higher intensity statin. Monitor Assessment & Plan (10/24/2022 3:39 PM CDT): Stable continue Zocor 20 mg. Assessment & Plan (02/25/2021 1:55 PM FLUE CLEANER): He takes generic simvastatin, seems to be [...] well. Continue same. He sees Cardiology at [facility] for regular appointments. Assessment & Plan (02/26/2020 2:09 PM FLUE CLEANER): He is tolerating generic Zocor. We will monitor lipids periodically. Lab Results Component Value Date CHOL 143 08/13/2019 CHOL 150 08/01/2018 Lab Results Component Value Date HDL 61 08/13/2019 HDL 59 08/01/2018 Lab Results Component Value Date LDLCALC 71 08/13/2019 LDLCALC 76 08/01/2018 Lab Results Component Value Date TRIG 53 08/13/2019 TRIG 73 08/01/2018 DDD (degenerative disc disease), lumbar 02/19/20 15 History of [place] cell carcinoma 01/27/2015 Overview (10/11/2021): Diagnosed/treated in [place]. Had left radical neck resection. Records in Care Everywhere. Assessment & Plan (12/26/2023 9:07 PM CDT): -in remission -first diagnosed several years ago when patient lived in [place] -required left radical neck resection -continue current regular follow up with specialists Assessment & Plan (04/12/2023 5:46 PM FLUE CLEANER): Patient is in remission. Patient believes that his prior radiation and surgical treatment for this may predispose him to increase risk for occasional episodes of hemoptysis Assessment & Plan (02/21/2023 8:04 PM FLUE CLEANER): Chronic. Follows with Oncology Assessment & Plan (11/22/2022 5:56 PM CDT): History of prior left radical neck dissection. Currently in remission. Follows with Hematology/Oncology Osteoarthritis of multiple joints 07/10/2008 Overview (07/29/2018): Multiple joints hurt. 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 Assessment & Plan (02/25/2021 1:53 PM FLUE CLEANER): He takes Tylenol as needed. He had [...] check with the orthopedic surgeons at [facility] per his preference. Personal history of CLL (chronic lymphocytic sidney kemia) 07/11/2007 Overview (07/29/2018): Monitored for a while, then received chemo and went into remission. Assessment & Plan (02/10/2025 9:50 AM FLUE CLEANER): Pt just saw oncology 01/22/2025: ASSESSMENT: Chronic lymphocytic leukemia and thrombocytopenia: On observation without B symptoms or notable adenopathy. He remains slightly myelosuppressed from his prior treatment. There was no evidence recurrent CLL. His laboratory data from today are consistent with what he has had several times over the years. On observation Assessment & Plan (04/12/2023 5:46 PM FLUE CLEANER): Patient had prior treatment for CLL. No [...] hemoptysis Assessment & Plan (02/21/2023 8:04 PM FLUE CLEANER): Chronic. Treated previously. Follows with Oncology for monitoring Assessment & Plan (11/22/2022 5:58 PM CDT): Chronic. In remission. Follows with Hematology Assessment & Plan (02/25/2021 1:52 PM FLUE CLEANER): He is in remission. He is followed [...] annually. Assessment & Plan (03/05/2019 1:14 PM FLUE CLEANER): He is in remission for now. His [...] Hypertension associated with type 2 diabetes deborah litus 04/12/2006 Assessment & Plan (12/17/2024 10:09 AM CDT): Stable continue lisinopril Assessment & Plan (06/20/2024 10:34 AM CDT): Stable continue lisinopril Assessment & Plan (03/10/2024 3:39 PM FLUE CLEANER): BP Readings from Last 3 Encounters: 03/10/24 [...] plan Assessment & Plan (04/12/2023 5:44 PM FLUE CLEANER): Chronic. Patient's blood pressure is actually controlled today. His diabetes has been controlled. I suspect some of his fluctuations with blood pressure have been due to his anxiety at times. We will monitor Assessment & Plan (02/21/2023 8:03 PM FLUE CLEANER): Borderline blood pressure control in office today. [...] mg. Assessment & Plan (02/25/2021 1:54 PM FLUE CLEANER): Systolic blood pressure is borderline, but acceptable [...] 08/19/2020 Assessment & Plan (02/26/2020 2:07 PM FLUE CLEANER): Systolic blood pressure is mildly elevated. He [...] needed. Assessment & Plan (03/05/2019 1:13 PM FLUE CLEANER): Last night he had sudden onset of left-sided upper chest and left arm pain associated with a rapid heartbeat. He felt short of breath. Symptoms persisted so he went to the [facility] ER. We are getting those records. He had labs and imaging which apparently were unremarkable. He was discharged without any change in therapy according to him. Blood pressure in the office remains moderately elevated, at least systolic. We will increase his lisinopril. We will discuss with his i&c tech about any other changes in therapy that [...] 05/10/2005 Assessment & Plan (02/10/2025 9:50 AM FLUE CLEANER): In office blood sugar 155. A1c 6.4%. down from previous 7.2% in September. Assessment & Plan (03/10/2024 3:41 PM FLUE CLEANER): Lab Results Component Value Date HGBA1C 6.5 [...] plan Assessment & Plan (04/12/2023 5:45 PM FLUE CLEANER): Chronic. Patient's diabetes was controlled at last routine visit. Continue current diabetic med Assessment & Plan (02/21/2023 8:02 PM FLUE CLEANER): Chronic. Has been controlled. Encouraged healthy diet [...] time Assessment & Plan (02/25/2021 1:52 PM FLUE CLEANER): HbA1c is slightly elevated but acceptable. There [...] 08/19/2020 Assessment & Plan (02/26/2020 2:07 PM FLUE CLEANER): Fasting blood sugars at home are in [...] 08/13/2019 Assessment & Plan (02/19/2019 2:09 PM FLUE CLEANER): He does not check blood sugars at [...] says. Return in two weeks for review. Resolved Problems Problem Noted Date Diagnosed Date [...] 03/10/2024 Assessment & Plan (02/14/2024 3:42 PM FLUE CLEANER): Doxycycline daily for 21 days Have oral [...] (10/25/2020): Added automatically from request for surgery [id number] Assessment & Plan (11/04/2020 4:31 PM CDT): [...] week Lesion of skin of cheek 07/07/2020 0804/2021 Assessment & Plan (07/07/2020 1:10 PM CDT): [...] treatment Skin lesion of face 07/07/2020 10/12/19 22 Overview (07/07/2020): Added automatically from request for surgery [id number] Skin lesion of left ear 06/07/2020 080 04/2021 Assessment & Plan (07/07/2020 1:09 PM CDT): [...] months Assessment & Plan (03/13/2019 3:25 PM FLUE CLEANER): Follow up in 6 months for ear [...] check Assessment & Plan (05/10/2022 2:02 PM FLUE CLEANER): Avoid ear cleaning techniques Avoid water to [...] nonprocreative genetic counseling 07/17/2017 08/21/2020 Overview (08/21/2020): [facility]: 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 Probably from [facility] records. Basal cell carcinoma of nose 12/20/2015 10/11/2021 Overview (09/20/2019): S/p Mohs 12-20-15 Exposure to radiation 07/20/20152020 Overview (08/21/2020): Probably from [facility] records. Head and neck cancer ([facility]) 05/24/2015 10/11/2021 Overview (09/20/2019): Left facial disease - underwent resection - high risk 03/2015-06/2015: FHX with radiotherapy - every other week Scar condition and fibrosis of skin 03/02/2015 12/25/2023 Overview (02/25/2020): From prior H&N surgery, XRT. Second degree AV block, Mobitz type II 02/18/2015 10/11/2021 Overview (02/25/2020): S/P PPM History of shingles 02/18/2015 10/12/19 Diabetic peripheral neuropathy ([facility]) 02/18/2015 10/11/2021 Assessment & Plan (03/07/2020 11:40 AM FLUE CLEANER): He actually has excellent protective sensation in his feet, even has hypersensitivity sensations. Some of his neuropathic symptoms are probably due to past chemotherapy. Chronic lymphocytic leukemia ([facility]) 11/28/2011 10/11/2021 Overview (09/20/2019): 05/2008: CLL - trisomy 07/2013-10/2013: Bendamustine/Rituxan x 6 cycles Assessment & Plan (08/26/2020 1:54 PM CDT): He is being monitored for a history of CLL which appears to be in remission after chemotherapy about six years ago. Encounters Date Type Department Care Team Description 02/10/2025 9:00 AM FLUE CLEANER Office Visit [facility] at [address] [phone] Renita Leigh NP Type 2 diabetes mellitus with hyperglycemia, with long-term current use of insulin (HCC) (Primary Dx); Abdominal pain, acute; Shortness of breath; Type 2 diabetes mellitus with diabetic polyneuropathy, without long-term current use of insulin (HCC); Anxiety; Personal history of CLL (chronic lymphocytic leukemia) 01/22/2025 2:00 PM FLUE CLEANER Office Visit [facility] On[facility] [address] [place] [address] [address] [facility] [address] [place] [address] Jamil Martinez MD CLL (chronic lymphocytic leukemia) (Primary Dx) 01/22/2025 1:30 PM FLUE CLEANER Lab [address] [place] [address] CLL (chronic lymphocytic leukemia) 01/21/2025 Telephone [facility] Oncology [address] [place] [address] [address] [facility] [address] [place] [address] Francheska Duke, CLBlanca 12/24/2024 7:00 AM CDT Ancillary Procedure [facility] [address] [facility] [address] [place] [phone] AV block, complete (HCC); Pacemaker; Paroxysmal atrial fibrillation (HCC); SSS (sick sinus syndrome) (HCC) 12/17/2024 10:00 AM CDT Office Visit [facility] at [address] [place] [address] Ashu Ware MD Carotid stenosis, right (Primary Dx); Hyperlipidemia associated with type 2 diabetes mellitus (HCC); Hypertension associated with type 2 diabetes mellitus (HCC) 12/17/2024 9:00 AM CDT Ancillary Procedure [facility] Surgery at [address] [place] [address] Carotid stenosis, right 12/17/2024 Orders Only [facility] at [place] [address] [place] [address] Ashu Ware MD Carotid stenosis, right (Primary Dx); Aftercare following surgery of the circulatory system 12/04/2024 1:45 PM CDT Office Visit [facility] [address] [place] [address] Medical Office [address] [place] [id number] Natalie Vang NP CLL (chronic lymphocytic leukemia) (Primary Dx) 12/04/2024 1:15 PM CDT Lab [address] [place] [address] CLL (chronic lymphocytic leukemia) from Last 3 Months Immunizations Immunization Administration Dates Next Due Influenza, Quadrivalent, Hig h Dose, Preservative Free, Intrr 12/28/2022,01/06/2022,12/30/2019 Influenza, Quadrivalent, Spl it, Preservative Free, Intramuscular 02/12/2021 Influenza, Trivalent, High D ose, Split, Preservative Free, Intramuscular 02/19/2024,02/19/2019 Influenza, Trivalent, IM (MDV) 12/19/2012,2011 Influenza, Unspecified 02/19/2024,2023(Deferred: Patient Refused),02/12/2021 Pfizer SARS-CoV-2 Monovalent Vaccination (12+ Yrs) PURPLE 01/16/2021,01/11/2021,06/20/2020,05/25 Pneumococcal Conjugate PCV 13 02/19/2019 Pneumococcal Polysaccharide PPV23 08/27/2019 Tdap 09/08/2017 ZOSTER Recombinant 08/13/2021,03/14/2021 Surgical History Surgery Date Site/Laterality Comments INSERT / REPLACE / REMOVE PACEMAKER 03/12/2016 - 03/11/2017 left upper chest [employer] Dual Chamber Pacemaker. Model: Honaker K173 SN: [id number] for CHB NECK SURGERY 03/12/2014 - 03/11/2015 Bilateral Multiple procedures for H&N cancer, details lacking, Lanny cell cancer per patient, in remission per prior notes. MOHS SURGERY For basal cell skin cancers, details lacking. PAROTIDECTOMY 03/12/2014 - 03/11/2015 Left Neck dissection and parotidectomy for cancer, details lacking, [facility]. PAROTIDECTOMY 02/17/2016 Right [facility]. TOTAL HIP ARTHROPLASTY 03/12/2016 - 03/11/2017 Left For DJD. INGUINAL HERNIA REPAIR 03/12/2013 - 03/11/2014 Left INGUINAL HERNIA REPAIR 03/12/2014 - 03/11/2015 Right HEMORRHOID SURGERY 03/12/2006 - 03/11/2007 [facility], [place], [place] HM COLONOSCOPY 10/21/2014 Hemorrhoids and tics, no polyps, [facility], see scanned report. 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 [facility]. TUMOR REMOVAL Right Forearm, details lacking. SKIN SURGERY 07/22/2020 Excision of Right cheek lesion 2.2 cm x 1.5 cm with Frozen section revealing at least squamous cell carcinoma in-situ and Advancement of adjacent skin flap repair repair, Dr. Muro, [place]. EXTERNAL EAR SURGERY 07/22/2020 Left Excision of Left Ear pinna lesion 1.4 cm x 5 mm with Frozen section revealing spindle cell lesion, Dr. Muro, [place]. TOTAL HIP ARTHROPLASTY 11/17/[address] Heller, [place]. RADICAL NECK DISSECTION 03/12/2014 - 03/11/2015 Left for merckel cell of neck JOINT REPLACEMENT 2014 OTHER SURGICAL HISTORY 06/01/2022 SURGICAL PREP RIGHT FOREHEAD, FULL THICKNESS SKIN GRAFT FROM RIGHT UPPER ARM TO RIGHT FOREHEAD (Right OTHER SURGICAL HISTORY 04/27/2022 SURGICAL PREPARATION OF LEFT FOREHEAD WOUND FULL THICKNESS SKIN GRAFT FROM LEFT ARM TO LEFT FORHEAD and complex repair (Left) COLONOSCOPY ANGIO SELECTIVE INTERNAL CAROTID RIGHT OTHER SURGICAL HISTORY 11/14/2022 Right Transcarotid arterial revascularization BIOPSY 08/28/2023 G TUBE PLACEMENT 2014 FRACTURE SURGERY 1987 ABDOMINAL SURGERY 08-15-2014 Medical History Medical History Date Comments Atrial fibrillation (HCC) 05/17/2018 Chroni c, has a pacemaker. Chronic systolic heart failure (HCC) 10/31/2017 Complete atrioventricular block (HCC) 05/02/2016 Essential hypertension 05/02/2016 Type 2 diabetes mellitus wit hout complication, without long-term current use of insulin (HCC) 05/18/2017 Excess ear wax 08/12/2018 Removed in [place], Dr. Muro. Chicken pox 1950 Insect bite of left lower leg 10/16/2019 Se kiara Goyal NP office note. CLL (chronic lymphocytic leukemia) 2013 Treated, supposedly in remission. Hypercholesteremia Encounter for nonprocreative genetic counseling 07/17/2017 [facility]: Forma tting of this note might be different from the original. 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 Probably from [facility] records. Exposure to radiation 07/20/2015 Probably f rom [facility] records. 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 06/25/2017 S/p Mohs 18 S/p Mohs Squamous cell carcinoma of right hand 08/22/2016 S/p excision 08-22-16 S/p Mohs 06-13-17 Primary sebaceous carcinoma 06/13/2017 S/p Mohs 06-13-17 Skin lesion of left ear 06/07/2020 Squamous cell carcinoma of skin of face 07/31/19 21 Acute diverticulitis 11/10/2020 Squamous cell carcinoma of left hand 12/24/2020 Basal cell carcinoma of nose 12/20/2015 S/p Mohs 12-20-15 History of shingles 02/18/2015 Pneumonia 1967 GERD (gastroesophageal reflux disease) 2000 occassionally states Arthritis 2005 Migraines 11/10/2021 Pacemaker 04/2016 left upper chest [employer] Dual Chamber Pacemaker. 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 Yael Harvey Heart attack Father Mr. Yael Harvey Heart disease Father Mr. Yael Harvey influenza Maternal Grandfather tunisian flu; COD No Known Problems Maternal Grandmother Arthritis Mother Mrs. Yael Harvey Cancer Mother Mrs. Yael Harvey Uterine cancer Mother Mrs. Yael Harvey Heart disease Other family history ; multiple family members No Known Problems Paternal Grandfather Other Paternal Grandmother obesity Pancreatic cancer Sister older Anesthesia problems Neg Hx Relation Name Status Comments Brother David Father Mr. Yael Harvey Maternal Grandfather Maternal Grandmother Mother Mrs. Yael Harvey Other Paternal Grandfather Paternal Grandmother Sister older Social History Tobacco Use Types Packs/Day Years Used Date Smoking Tobacco: Never Smokeless Tobacco: Never Tobacco Cessation:Counseling Given: Not Answered Alcohol Use Standard Drinks/Week Comments Never 0 [...] often do you attend chur ch or catholic services? Never 11/15/2022 Do you belong to any clubs o r organizations such as buddhist groups, unions, fraternal or athletic groups, or [...] place to sleep or slept in a half-way (including now)? No 11/15/2022 AUDIT-C Answer Date [...] on file Legal Sex Male 9:23 AM FLUE CLEANER Gender Identity Not on file Sexual Orientation Not on file Last Filed Vital Signs Vital Sign Reading Time Taken Comments Blood Pressure 136/78 02/10/2025 9:10 AM FLUE CLEANER Pulse 100 02/10/2025 9:10 AM FLUE CLEANER Temperature 36.7 C (98 F) 02/10/2025 9:10 AM FLUE CLEANER Respiratory Rate 20 02/10/2025 9:10 AM FLUE CLEANER Oxygen Saturation 98% 02/10/2025 9:10 AM FLUE CLEANER Inhaled Oxygen Concentration - - Weight 62.6 kg (138 lb) 02/10/2025 9:10 AM FLUE CLEANER Height 175.3 cm (5' 9) 02/10/2025 9:10 AM FLUE CLEANER Body Mass Index 20.38 02/10/2025 9:10 AM FLUE CLEANER Plan of Treatment Health Maintenance Due Date Last Done Comments Dilated Eye Exam 01/02/2023 01/02/2022, , 01/03/2021, Additional history exists Foot Exam 03/10/2025 03/10/2024, 02/09, 02/21/2023, Additional history exists Well Visit 65+ 03/10/2025 03/10/2024, 02/11, 02/21/2023, Additional history exists Covid-19 Vaccine (9 - Pfizer risk 2024- season) 2025 01/20/2025, 02/19/2024, 12/28/2022, Additional history exists Hemoglobin A1C 08/11/2025 02/10/2025, 09/09, 03/11/2024, Additional history exists Albumin Creatinine Ratio, Urine 09/25/2025 09/25/2024, 08/23/2023, 09/16/2021, Additional history exists Lipid Panel 09/25/2025 09/25/2024, 02/11, 02/22/2023, Additional history exists eGFR 01/22/2026 01/22/2025, 11/11, 09/25/2024, Additional history exists Depression Screening 02/10/2026 02/10/2025, 09/10/2024, 03/10/2024, Additional history exists Fall Risk Assessment 02/10/2026 02/10/2025, 03/10/2024, 12/25/2023, Additional history exists DTaP/Tdap/Td Vaccine (2 - Td or Tdap) 09/09/2027 09/08/2017 Zoster Vaccine Completed 08/13/2021, 03/14/2021 Influenza Vaccine Completed 01/20/2025, , 02/19/2024, Additional history exists Pneumococcal vaccine 65+ Completed 025, 08/27/2019, 02/19/2019 Hepatitis B Screening Discontinued Medical Devices Implanted Type Area Milk Inspector Device Identifier Shelf Expiration Date Model / Serial / Lot Tuloko Ra Lead 4086-02/14/2014 Implanted:08/2013 (Quantity not on file) Lead Heart N[employer] C.R.M. 4086 / [id number] / [employer] Rv Lead 4087-02/14/2014 Implanted:08/2013 (Quantity not on file) Lead Heart [employer] C.R.M. 4087 / [id number] / [employer] C.R.M. Accolade Latitude Nxt Pacesafe Easyview 4.45x5.02cm 2 Chamber Is1 L311 - [id number] - [id number] Implanted:Qty: 1 on 04/25/2023 by Andreas Vargas MD at [facility] Pacemaker [employer] C.R.M. 02/15/2025 L311 / [id number] / [employer] Enroute Uber Flex 9mm .078in 40mm 57cm Delivery System Angle Tip Sr-0940-Cs - [id number] Implanted:Qty: 1 on 11/14/2022 by Ashu Ware MD at [facility] Right: Carotid [employer] [id number] 07/09/2025 SR-0940-CS / / [id number] Bilateral : Hip Depuy Orthopaed[employer] Inc [id number] Akutan 56mm Sector Hip Shell Acetabular Gription Sterile Latex Free - [id number] Implanted:Qty: 1 on 11/17/2020 by Augie Heller MD at [facility] Right: Hip [employer] 08/09/2030 [id number] / / Dep[employer] [id number] Akutan 6.5mm 35mm Acetabular Cancellous Screw Bone Sterile - [id number] Implanted:Qty: 1 on 11/17/2020 by Augie Heller MD at [facility] Right: Hip [employer] 08/08/2030 0 / / Dep[employer] [id number] Akutan 56mm 36mm Hip Neutral Liner Acetabular Altrx Sterile Latex Free - [id number] Implanted:Qty: 1 on 11/17/2020 by Augie Heller MD at [facility] Right: Hip [employer] 01/09/2025 [id number] / / Dep[employer] [id number] Actis L111 Mm Collar Hip 8 High Offset Stem Femoral - [id number] Implanted:Qty: 1 on 11/17/2020 by Augie Heller MD at [facility] Right: Hip [employer] 08/09/2030 [id number] / / Depuy [employer] [id number] Articul/Russ 36mm Cementless Hip +1.5mm 02/22 Taper Head Femoral Latex Free - [id number] Implanted:Qty: 1 on 11/17/2020 by Augie Heller MD at [facility] Right: Hip [employer] 09/08/2025 [id number] / / Explanted Type Area Milk Inspector Device Identifier Shelf Expiration Date Model / Serial / Lot [employer] Pm K173-02/14/2014 Implanted:Qty: 1 on 02/14/2014 Explanted:Qty: 1 on 04/25/2023 Pacemaker Left: Chest Wall [employer] C.R.M. K173 / [id number] / Procedures Procedure Name Priority Date/Time Associated Diagnosis Comments POCT GLUCOSE Routine 02/10/2025 9:45 AM FLUE CLEANER Type 2 diabetes mellitus with hyperglycemia, with long-term current use of insulin (HCC) POCT HEMOGLOBIN A1C Routine 02/10/2025 9 :40 AM FLUE CLEANER Type 2 diabetes mellitus with hyperglycemia, with long-term current use of insulin (HCC) EGFR Routine 01/22/2025 1:35 PM FLUE CLEANER CLL (chronic lymphocytic leukemia) DIFFERENTIAL AUTO Routine 01/22/2025 1:3 5 PM FLUE CLEANER CLL (chronic lymphocytic leukemia) CBC WITH AUTO DIFFERENTIAL Routine 01/22/2025 1:35 PM FLUE CLEANER CLL (chronic lymphocytic leukemia) COMPREHENSIVE METABOLIC PANEL Routine 01/22/2025 1:35 PM FLUE CLEANER CLL (chronic lymphocytic leukemia) LACTATE DEHYDROGENASE Routine 01/22/2025 1:35 PM FLUE CLEANER CLL (chronic lymphocytic leukemia) DEVICE CHECK - REMOTE Routine 12/24/2024 7:13 AM CDT AV block, complete (HCC) Pacemaker Paroxysmal atrial fibrillation (HCC) SSS (sick sinus syndrome) (HCC) US CAROTIDS DUPLEX BILATERAL Schedule Routine, Read Routine (OP Routine) 12/17/2024 9:36 AM CDT Carotid stenosis, right EGFR Routine 12/04/2024 1:15 PM CDT CLL (chronic lymphocytic leukemia) DIFFERENTIAL AUTO Routine 12/04/2024 1:1 5 PM CDT CLL (chronic lymphocytic leukemia) CBC WITH AUTO DIFFERENTIAL Routine 12/04/2024 1:15 PM CDT CLL (chronic lymphocytic leukemia) COMPREHENSIVE METABOLIC PANEL Routine 12/04/2024 1:15 PM CDT CLL (chronic lymphocytic leukemia) LACTATE DEHYDROGENASE Routine 12/04/2024 1:15 PM CDT CLL (chronic lymphocytic leukemia) LIPID PANEL Routine 09/25/2024 8:32 AM CDT Hyperlipidemia associated with type 2 diabetes mellitus (HCC) ALBUMIN CREATININE RATIO, URINE Routine 09/25/2024 8:32 AM CDT Type 2 diabetes mellitus with diabetic polyneuropathy, without long-term current use of insulin (HCC) Hyperlipidemia associated with type 2 diabetes mellitus (HCC) DIABETES EYE EXAM Routine 01/02/2022 from Last 3 Months or Most Recently Relevant to Health Maintenance Results * POCT glucose (02/10/2025 9:45 AM FLUE CLEANER) Glucose Blood, POC 155 Normal Fasting 70 - 100, Random <200 mg/dL Blood 02/10/2025 9:45 AM FLUE CLEANER Renita Leigh NP POINT OF CARE TEST ORDERABLES Final Result * (ABNORMAL) POCT hemoglobin A1c (02/10/2025 9:40 AM FLUE CLEANER) Hemoglobin A1C, POC 6.4(A) 4.0 - 5.6 % Blood 02/10/2025 9:40 AM FLUE CLEANER us Renita Leigh CLERK TELEGRAPH SERVICE POINT OF CARE TEST ORDERABLES Final Result * eGFR (01/22/2025 1:35 PM FLUE CLEANER) eGFR 88 >=60 mL/min/1. 73 m2 Comment: Interpretive Data Reference Interval Normal >/= 90 mL/min/1.73m2 Mildly decreased* 60 - 89 mL/min/1.73m2 Mildly to moderately decreased 45 - 59 mL/min/1.73m2 Moderately to severely decreased 30 - 44 mL/min/1.73m2 Severely decreased 15 - 29 mL/min/1.73m2 Kidney Failure < 15 mL/min/1.73m2 *Relative to young adult level Estimated glomerular filtration rate is determined by the 2020 CKD-EPI equation recommended by the National Kidney Foundation (A Unifying Approach to GFR Estimation: Recommendations of the NKF-ASK Task Force on Reassessing the Inclusion of Race in Diagnosing Kidney Disease, JASN 2020). The CKD-EPI equation should not be used for patients with unstable renal function and has not been validated in children and those over 70. Current interpretive data was last reviewed 2021. Testing performed by: [facility], [facility], [place], [address] Blood 01/22/2025 1:35 PM FLUE CLEANER 01/22/2025 1:49 PM FLUE CLEANER us Natalie Vang CLERK TELEGRAPH SERVICE LAB BLOOD ORDERABLES Final Result ANA CHAN ([place]) [facility] Department [place] [address] * Differential, auto (01/22/2025 1:35 PM FLUE CLEANER) Neutrophil abs 2.32 1.50 - 6.50 K/cumm ANA CHAN ([place]) Comment:Testing performed by : [facility], [address] [facility], Medical Office [address], [place] [address] Imm gran abs 0.01 0.00 - 0.10 K/cumm [facility] ([place]) Comment:Testing performed by : [facility] [address], Medical Office [address], [place] [address] Lymphocyte abs 0.87 0.80 - 3.30 K/cumm [facility] ([place]) Comment:Testing performed by : [facility] [address], Medical Office [address], [place] [address] Monocyte abs 0.62 0.20 - 0.80 K/cumm [facility] ([place]) Comment:Testing performed by : [facility] [address], Medical Office [address], [place] [address] Eosinophil abs 0.05 0.00 - 0.50 K/cumm [facility] ([place]) Comment:Testing performed by : [facility] [address], Medical Office [address], [place] [address] Basophil abs 0.03 0.00 - 0.10 K/cumm [facility] ([place]) Comment:Testing performed by : [facility] [address], Medical Office [address], [place] [address] Neutrophil pct 59.4 % [facility] ([place]) Comment: Interpretive Data Percent cell count reference ranges are not reported, since discordance with absolute values may lead to misinterpretation of CBC data. Current Interpretive Data was last revised on 2022. Testing performed by: [facility] [address], Medical Office [address], [place] [address] Imm gran pct 0.3 % [facility] ([place]) Comment: Interpretive Data Percent cell count reference ranges are not reported, since discordance with absolute values may lead to misinterpretation of CBC data. Current Interpretive Data was last revised on 2022. Testing performed by: [facility] [address], Medical Office [address], [place] [address] Lymphocyte pct 22.3 % [facility] ([place]) Comment: Interpretive Data Percent cell count reference ranges are not reported, since discordance with absolute values may lead to misinterpretation of CBC data. Current Interpretive Data was last revised on 2022. Testing performed by: [facility] [address], Medical Office [facility] [address], [place] [address] Monocyte pct 15.9 % ANA CHAN ([place]) Comment: Interpretive Data Percent cell count reference ranges are not reported, since discordance with absolute values may lead to misinterpretation of CBC data. Current Interpretive Data was last revised on 2022. Testing performed by: [facility] [address], Medical Office [facility] [address], [place] [address] Eosinophil pct 1.3 % EFRAÍN CHAN ([place]) Comment: Interpretive Data Percent cell count reference ranges are not reported, since discordance with absolute values may lead to misinterpretation of CBC data. Current Interpretive Data was last revised on 2022. Testing performed by: [facility] [address], Medical Office [facility] [address], [place] [address] Basophil pct 0.8 % ANA CHAN ([place]) Comment: Interpretive Data Percent cell count reference ranges are not reported, since discordance with absolute values may lead to misinterpretation of CBC data. Current Interpretive Data was last revised on 2022. Testing performed by: [facility] [address], Medical Office [facility] [address], [place] [address] Blood 01/22/2025 1:35 PM FLUE CLEANER 01/22/2025 1:39 PM FLUE CLEANER us Natalie Vang CLERK TELEGRAPH SERVICE LAB BLOOD ORDERABLES Final Result ANA CHAN ([place]) [facility] Department [place] [address] * (ABNORMAL) CBC with auto differential (01/22/2025 1:35 PM FLUE CLEANER) WBC 3.90 3.80 - 9.90 K/cumm ANA CHAN ([place]) Comment:Testing performed by : [facility] [address], Medical Office [facility] [address], [place] [address] Hgb 12.7(L) 13.0 - 17.5 g/dL ANA CHAN ([place]) Comment:Testing performed by : [facility] [address], Medical Office [facility] [address], [place] [address] Hct 38.4(L) 38.9 - 50.3 % [facility] ([place]) Comment:Testing performed by : [facility] [address], Medical Office [facility] [address], [place] [address] Plt 74(L) 150 - 400 K/cumm [facility] ([place]) Comment:Testing performed by : [facility] [address], Medical Office [facility] B [facility] [address], [place] [address] MPV 12.6(H) 9.1 - 12.3 fL [facility] ([place]) Comment:Testing performed by : [facility] [address], Medical Office [facility] [address], [place] [address] RBC 4.35 4.30 - 5.80 M/cumm [facility] ([place]) Comment:Testing performed by : [facility] [address], Medical Office [facility] B [facility] [address], [place] [address] MCV 88.3 81.3 - 96.4 fL [facility] ([place]) Comment:Testing performed by : [facility] [address], Medical Office [facility] [address], [place] [address] MCH 29.2 27.1 - 33.3 pg [facility] ([place]) Comment:Testing performed by : [facility] [address], Medical Office [facility] [address], [place] [address] MCHC 33.1 32.3 - 35.7 g/dL [facility] ([place]) Comment:Testing performed by : [facility] [address], Medical Office [facility] B [facility] [address], [place] [address] RDW CV 13.1 11.1 - 14.9 % [facility] ([place]) Comment:Testing performed by : [facility] [address], Medical Office [facility] [address], [place] [address] RDW SD 42.9 35.7 - 48.1 fL [facility] ([place]) Comment:Testing performed by : [facility] [address], Medical Office [facility] [address], [place] [address] Blood 01/22/2025 1:35 PM FLUE CLEANER 01/22/2025 1:39 PM FLUE CLEANER us Natalie Vang CLERK TELEGRAPH SERVICE LAB BLOOD ORDERABLES Final Result ANA CHAN ([place]) [address] [place] [address] Department [place] [address] * Lactate dehydrogenase (LD) (01/22/2025 1:35 PM FLUE CLEANER) Lactate dehydrogenase (LDH) 223 100 - 250 Units/L Comment:Testing performed by : [place], [address] Blood 01/22/2025 1:35 PM FLUE CLEANER 01/22/2025 1:49 PM FLUE CLEANER us Natalie Vang CLERK TELEGRAPH SERVICE LAB BLOOD ORDERABLES Final Result Performing Organization Address [facility] Co de Phone Number ANA CHAN ([place]) [address] [place] [address] Department [place] [address] * Comprehensive metabolic panel (01/22/2025 1:35 PM FLUE CLEANER) Pathologist [facility] [place] Sodium 137 135 - 145 mmol/L Comment:Testing performed by : [place], [address] Potassium, pl 4.5 3.3 - 4.9 mmol/L [facility] ([place]) Comment:Testing performed by : [place], [address] Chloride 99 97 - 110 mmol/L [facility] ([place]) Comment:Testing performed by : [place], [address] CO2 29 22 - 32 mmol/L [facility] ([place]) Comment:Testing performed by : [place], [address] Anion gap 9 2 - 15 mmol/L [facility] ([place]) Comment:Testing performed by : [facility], [place], [address] BUN 13 6 - 25 mg/dL [facility] ([place]) Comment:Testing performed by : [place], [address] Creatinine 0.82 0.80 - 1.30 mg/dL [facility] ([place]) Comment:Testing performed by : [place], [address] Glucose 139 70 - 199 mg/dL [facility] ([place]) Comment: Interpretive Data Fasting glucose >/= 126 mg/dl is diagnostic for diabetes. Fasting is defined as no caloric intake for at least 8 hours. Fasting glucose between 100 mg/dl to 125 mg/dl is diagnostic of prediabetes. In a patient with classic symptoms of hyperglycemia or hyperglycemic crisis, a random glucose >/= 200 mg/dl is diagnostic for diabetes. In the absence of unequivocal hyperglycemia, results should be confirmed by repeat testing. The classification and Diagnosis of Diabetes Diabetes Care 2021; 46: S19-S40. Current interpretive data was last revised 2022. Testing performed by: [place], [address] Calcium 9.7 8.5 - 10.3 mg/dL [facility] ([place]) Comment:Testing performed by : [place], [address] Bilirubin, total 0.4 0.1 - 1.2 mg/dL [facility] ([place]) Comment:Testing performed by : [place], [address] Protein, pl 6.8 6.5 - 8.5 g/dL [facility] ([place]) Comment:Testing performed by : [place], [address] Albumin 4.7 3.5 - 5.0 g/dL [facility] ([place]) Comment:Testing performed by : [place], [address] Alk phos 125 40 - 130 Units/L [facility] ([place]) Comment:Testing performed by : [place], [address] ALT 13 7 - 55 Units/L [facility] ([place]) Comment:Testing performed by : [facility], [place], [address] AST 19 10 - 50 Units/L [facility] ([place]) Comment:Testing performed by : [facility], [place], [address] Blood 01/22/2025 1:35 PM FLUE CLEANER 01/22/2025 1:49 PM FLUE CLEANER Natalie Vang CLERK TELEGRAPH SERVICE LAB BLOOD ORDERABLES Final Result [facility] ([place]) 1 [facility] Department [place] [address] * DEVICE CHECK - REMOTE (12/24/2024 7:13 AM CDT) Anatomical Region Laterality Modality Other Narrative 01/02/2025 12:32 PM CDT [employer] Accolade Dual Pacemaker. Dx; CHB, SSS, PAF. DOI 04/25/2023-Dr Mathews. Rani-Ambrocio. Latitude remote. Routine DDDR Pacemaker Remote. Transmission attached. Battery status: OK , 6.5 years remaining battery life to LITO. Stable lead impedances, pacing and sensing thresholds. Presenting rhythm: /[employer]S [employer] SCIENCES DEAN AP-4 %, [employer] DEAN-100% 9 AT/AF episodes noted, longest episode was 10 seconds in duration, IEGM demonstrates atrial tachycardia and far field oversensing of R-wave on atrial channel. AF [place] < 1%. No Ventricular high rate episodes detected. Medications: Amlodipine 5 mg, clopidogrel 75 mg, Eliquis 5 mg, lisinopril 20 mg See scanned report. Office pacemaker follow up: 07/22/25 Latitude remote f/u 03/25/25. Lucas Epstein RN us Guido Albrecht MD [facility] CARDIAC SERVICES PROC EDURES Final Result * US Carotids Duplex Bilateral (12/17/2024 9:36 AM CDT) Anatomical Region Laterality Modality Vascular Bilateral Ultrasound 12/17/2024 9:09 AM CDT Narrative 12/18/2024 10:42 AM CDT [facility] [address] [place] [address] Carotid Duplex Ultrasound Report Patient Name: ALCON HARVEY R : 1945 (79y 8m) Study Date: 12/17/2024 9:09:01 AM Sex: M Ballistic Expert: [facility] Location: [facility] Ref Provider: ASHU WARE Quality: Adequate Order Provider: ASHU WARE PROCEDURES: Carotid Report: Carotid duplex examination of the extracranial arteries was performed using 2D, color and spectral Doppler. INDICATIONS: S/P Rt TCAR 11/14/22. HISTORY: HTN. HLD. DM. Afib. TIA. Pacemaker. [place] cell carcinoma S/P Rt neck dissection and radiation. COMPARISONS: The previous exam was completed on 06/10/24: patent Rt stent, Lt <50. Compared to prior there is mild increase in velocity on the left. MEASUREMENTS: Right Value Left Value RT Prox CCA PSV 60 cm/sec LT Prox CCA PSV 76 cm/sec RT Prox CCA EDV 12 cm/sec LT Prox CCA EDV 17 cm/sec RT Distal CCA PSV 69 cm/sec LT Distal CCA PSV 96 cm/sec RT Distal CCA EDV 18 cm/sec LT Distal CCA EDV 26 cm/sec RT Prox ICA PSV 66 cm/sec LT Prox ICA PSV 98 cm/sec RT Prox ICA EDV 19 cm/sec LT Prox ICA EDV 27 cm/sec RT Mid ICA PSV 87 cm/sec LT Mid ICA PSV 131 cm/sec RT Mid ICA EDV 25 cm/sec LT Mid ICA EDV 43 cm/sec RT Distal ICA PSV 69 cm/sec LT Distal ICA PSV 94 cm/sec RT Distal ICA EDV 17 cm/sec LT Distal ICA EDV 36 cm/sec RT ECA Prx PSV 153 cm/sec LT ECA Prx PSV 75 cm/sec RT ICA/CCA 0.96 ratio LT ICA/CCA 1.36 ratio Rt Vert Dst PSV 56 cm/sec Lt Vert Dst PSV 57 cm/sec STENT MEASUREMENTS: Right Value Location Rt TCAR Rt Stent Prx [place] PSV 65/14 cm/sec Rt Stent Prx PSV 55/15 cm/sec Rt Stent Mid PSV 64/17 cm/sec Rt Stent Dst PSV 66/19 cm/sec Rt Stent Dst [place] PSV 87/25 cm/sec FINDINGS: Rt Common Carotid Artery: The plaque in the right CCA appears to be heterogeneous. Rt Internal Carotid Artery: The plaque in the right internal carotid artery appears to be heterogeneous and smooth. Atherosclerotic changes of the right internal carotid artery without hemodynamically significant Doppler findings. <50% stenosis. Rt External Carotid Artery: Patent right external carotid artery with evidence of atherosclerotic disease present. Rt Vertebral Artery: The right vertebral artery is patent with antegrade flow. Lt Common Carotid Artery: The plaque in the left CCA appears to be heterogeneous. Lt Internal Carotid Artery: The plaque in the left internal carotid artery appears to be heterogeneous and smooth. Significant atherosclerotic changes of the left internal carotid artery with elevated peak systolic velocity and end diastolic velocity, as above. 50-69% stenosis. Lt External Carotid Artery: Patent left external carotid artery with evidence of atherosclerotic disease present. Lt Vertebral Artery: The left vertebral artery is patent with antegrade flow. Stent: Stent is located in the right internal carotid artery. Patent internal carotid artery stent with no evidence of stenosis. Comments: Brachial artery systolic blood pressure is 141 on the right, 135 on the left. CONCLUSIONS: 1. Right internal carotid artery stent is patent. 2. The left internal carotid artery disease is consistent with moderate 50-69% stenosis. 3. Normal, antegrade flow is noted in bilateral vertebral arteries. ATTESTATION: I have reviewed and interpreted the pertinent images and measurements of this study. I attest to the conclusions in the final report that is provided above. Electronically Signed By: Ashu Ware MD 12/18/2024 10:08:26 AM CDT Procedure Note Ashu Ware MD - 12/18/2024 [facility] Ve[facility] [address] 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 INDICATIONS: S/P Rt TCAR 11/14/22. HISTORY: HTN. HLD. DM. Afib. TIA. Pacemaker. 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 COMPARISONS: The previous exam was completed on 06/10/24: patent Rt stent, Lt <50.Compared to prior there is mild increase in velocity on the left. MEASUREMENTS: Right Value Left Value RT Prox CCA PSV 60 cm/sec LT Prox CCA PSV 76 cm/sec RT Prox CCA EDV 12 cm/sec LT Prox CCA EDV 17 cm/sec RT Distal CCA PSV 69 cm/sec LT Distal CCA PSV 96 cm/sec RT Distal CCA EDV 18 cm/sec LT Distal CCA EDV 26 cm/sec RT Prox ICA PSV 66 cm/sec LT Prox ICA PSV 98 cm/sec RT Prox ICA EDV 19 cm/sec LT Prox ICA EDV 27 cm/sec RT Mid ICA PSV 87 cm/sec LT Mid ICA PSV 131 cm/sec RT Mid ICA EDV 25 cm/sec LT Mid ICA EDV 43 cm/sec RT Distal ICA PSV 69 cm/sec LT Distal ICA PSV 94 cm/sec RT Distal ICA EDV 17 cm/sec LT Distal ICA EDV 36 cm/sec RT ECA Prx PSV 153 cm/sec LT ECA Prx PSV 75 cm/sec RT ICA/CCA 0.96 ratio LT ICA/CCA 1.36 ratio Rt Vert Dst PSV 56 cm/sec Lt Vert Dst PSV 57 cm/sec STENT MEASUREMENTS: Right Value Location Rt TCAR Rt Stent Prx [place] PSV 65/14 cm/sec Rt Stent Prx PSV 55/15 cm/sec Rt Stent Mid PSV 64/17 cm/sec Rt Stent Dst PSV 66/19 cm/sec Rt Stent Dst [place] PSV 87/25 cm/sec FINDINGS: Rt Common Carotid Artery: The plaque in the right CCA appears to beheterogeneous. Rt Internal Carotid Artery: The plaque in the right internal carotidartery appears to be heterogeneous and smooth. Atherosclerotic changes of the right internalcarotid artery without hemodynamically significant Doppler findings. <50% stenosis. Rt External Carotid Artery: Patent right external carotid artery withevidence of atherosclerotic disease present. Rt Vertebral Artery: The right vertebral artery is patent with antegradeflow. Lt Common Carotid Artery: The plaque in the left CCA appears to beheterogeneous. Lt Internal Carotid Artery: The plaque in the left internal carotid arteryappears to be heterogeneous and smooth. Significant atherosclerotic changes of the leftinternal carotid artery with elevated peak systolic velocity and end diastolicvelocity, as above. 50-69% stenosis. Lt External Carotid Artery: Patent left external carotid artery withevidence of atherosclerotic disease present. Lt Vertebral Artery: The left vertebral artery is patent with antegradeflow. Stent: Stent is located in the right internal carotid artery. Patentinternal carotid artery stent with no evidence of stenosis. Comments: Brachial artery systolic blood pressure is 141 on the right, 135on the left. CONCLUSIONS: 1. Right internal carotid artery stent is patent. 2. The left internal carotid artery disease is consistent with -38% stenosis. 3. Normal, antegrade flow is noted in bilateral vertebral arteries. ATTESTATION: I have reviewed and interpreted the pertinent images and measurements ofthis study. I attest to the conclusions in the final report that is provided above. Electronically Signed By: Ashu Ware MD 12/18/2024 10:08:26 AM CDT us Ashu Ware MD [facility] PROCEDURES Final Result * eGFR (12/04/2024 1:15 PM CDT) eGFR 89 >=60 mL/min/1. 73 m2 Comment: Interpretive Data Reference Interval Normal >/= 90 mL/min/1.73m2 Mildly decreased* 60 - 89 mL/min/1.73m2 Mildly to moderately decreased 45 - 59 mL/min/1.73m2 Moderately to severely decreased 30 - 44 mL/min/1.73m2 Severely decreased 15 - 29 mL/min/1.73m2 Kidney Failure < 15 mL/min/1.73m2 *Relative to young adult level Estimated glomerular filtration rate is determined by the 2020 CKD-EPI equation recommended by the National Kidney Foundation (A Unifying Approach to GFR Estimation: Recommendations of the NKF-ASK Task Force on Reassessing the Inclusion of Race in Diagnosing Kidney Disease, JASN 2020). The CKD-EPI equation should not be used for patients with unstable renal function and has not been validated in children and those over 70. Current interpretive data was last reviewed 2021. Testing performed by: [facility], [facility], [place], [address] Blood 12/04/2024 1:15 PM CDT 12/04/2024 1:38 PM CDT us Jamil Martinez MD LAB BLOOD ORDERABLES Natalie recio Result [facility] ([place]) 1 [facility] Department [place] [address] * (ABNORMAL) Differential, auto (12/04/2024 1:15 PM CDT) Neutrophil abs 2.56 1.50 - 6.50 K/cumm [facility] ([place]) Comment:Testing performed by : [facility] [address], Medical Office [facility] [address], [place] [address] Imm gran abs 0.01 0.00 - 0.10 K/cumm [facility] ([place]) Comment:Testing performed by : [facility] [address], Medical Office [facility] [address], [place] [address] Lymphocyte abs 0.79(L) 0.80 - 3.30 K/cumm [facility] ([place]) Comment:Testing performed by : [facility] [address], Medical Office [facility] [address], [place] [address] Monocyte abs 0.47 0.20 - 0.80 K/cumm [facility] ([place]) Comment:Testing performed by : [facility] [address], Medical Office [facility] [address], [place] [address] Eosinophil abs 0.04 0.00 - 0.50 K/cumm [facility] ([place]) Comment:Testing performed by : [facility] [address], Medical Office [facility] [address], [place] [address] Basophil abs 0.03 0.00 - 0.10 K/cumm [facility] ([place]) Comment:Testing performed by : [facility] [address], Medical Office [facility] [address], [place] [address] Neutrophil pct 65.5 % [facility] ([place]) Comment: Interpretive Data Percent cell count reference ranges are not reported, since discordance with absolute values may lead to misinterpretation of CBC data. Current Interpretive Data was last revised on 2022. Testing performed by: [facility] [address], Medical Office [address], [place] [address] Imm gran pct 0.3 % [facility] ([place]) Comment: Interpretive Data Percent cell count reference ranges are not reported, since discordance with absolute values may lead to misinterpretation of CBC data. Current Interpretive Data was last revised on 2022. Testing performed by: [facility] [address], Medical Office [address], [place] [address] Lymphocyte pct 20.3 % [facility] ([place]) Comment: Interpretive Data Percent cell count reference ranges are not reported, since discordance with absolute values may lead to misinterpretation of CBC data. Current Interpretive Data was last revised on 2022. Testing performed by: [facility] [address], Medical Office [address], [place] [address] Monocyte pct 12.1 % [facility] ([place]) Comment: Interpretive Data Percent cell count reference ranges are not reported, since discordance with absolute values may lead to misinterpretation of CBC data. Current Interpretive Data was last revised on 2022. Testing performed by: [facility] [address], Medical Office [address], [place] [address] Eosinophil pct 1.0 % [facility] ([place]) Comment: Interpretive Data Percent cell count reference ranges are not reported, since discordance with absolute values may lead to misinterpretation of CBC data. Current Interpretive Data was last revised on 2022. Testing performed by: [facility] [address], Medical Office [address], [place] [address] Basophil pct 0.8 % [facility] ([place]) Comment: Interpretive Data Percent cell count reference ranges are not reported, since discordance with absolute values may lead to misinterpretation of CBC data. Current Interpretive Data was last revised on 2022. Testing performed by: [facility] [address], Medical Office [address], [place] [address] Blood 12/04/2024 1:15 PM CDT 12/04/2024 1:19 PM CDT us Jamil Martinez MD LAB BLOOD ORDERABLES Natalie recio Result [facility] ([place]) 1 [facility] [place] [address] * (ABNORMAL) CBC with auto differential (12/04/2024 1:15 PM CDT) Pathologist [facility] [place] WBC 3.90 3.80 - 9.90 K/cumm [facility] ([place]) Comment:Testing performed by : [facility] [address], Medical Office [address], [place] [address] Hgb 12.3(L) 13.0 - 17.5 g/dL [facility] ([place]) Comment:Testing performed by : [facility] [address], Medical Office [facility] [address], [place] [address] Hct 37.4(L) 38.9 - 50.3 % [facility] ([place]) Comment:Testing performed by : [facility] [address], Medical Office [facility] [address], [place] [address] Plt 68(L) 150 - 400 K/cumm [facility] ([place]) Comment:Testing performed by : [facility] [address], Medical Office [facility] [address], [place] [address] MPV 12.6(H) 9.1 - 12.3 fL [facility] ([place]) Comment:Testing performed by : [facility] [address], Medical Office [facility] [address], [place] [address] RBC 4.21(L) 4.30 - 5.80 M/cumm [facility] ([place]) Comment:Testing performed by : [facility] [address], Medical Office [facility] [address], [place] [address] MCV 88.8 81.3 - 96.4 fL [facility] ([place]) Comment:Testing performed by : [facility] [address], Medical Office [address], [place] [address] MCH 29.2 27.1 - 33.3 pg [facility] ([place]) Comment:Testing performed by : [facility] [address], Medical Office [address], [place] [address] MCHC 32.9 32.3 - 35.7 g/dL [facility] ([place]) Comment:Testing performed by : [facility] [address], Medical Office [facility] [address] [facility] [address], [place] [address] RDW CV 13.3 11.1 - 14.9 % [facility] ([place]) Comment:Testing performed by : [facility] [address], Medical Office [facility] B [facility] [address], [place] [address] RDW SD 43.9 35.7 - 48.1 fL [facility] ([place]) Comment:Testing performed by : [facility] [address], Medical Office [facility] [address], [place] [address] Blood 12/04/2024 1:15 PM CDT 12/04/2024 1:19 PM CDT us Jamil Martinez MD LAB BLOOD ORDERABLES Natalie l Result Performing Organization Address City/[facility]/ZIP Co de Phone Number [facility] ([place]) 1 [facility] Department [place] [employer] [place] [address] * Lactate dehydrogenase (LD) (12/04/2024 1:15 PM CDT) Lactate dehydrogenase (LDH) 229 100 - 250 Units/L [facility] ([place]) Blood 12/04/2024 1:15 PM CDT 12/04/2024 1:38 PM CDT us Jamil Martinez MD LAB BLOOD ORDERABLES Natalie l Result Performing Organization Address City/[facility]/ZIP Co de Phone Number [facility] ([place]) 1 [facility] [place] [facility] [place] [place] [address] * Comprehensive metabolic panel (12/04/2024 1:15 PM CDT) Sodium 136 135 - 145 mmol/L [facility] Potassium, pl 4.3 3.3 - 4.9 mmol/L [facility] Chloride 100 97 - 110 mmol/L [facility] CO2 23 22 - 32 mmol/L [facility]) Anion gap 13 2 - 15 mmol/L [facility] BUN 17 6 - 25 mg/dL [facility] ([place]) Creatinine 0.80 0.80 - 1.30 mg/dL [facility] ([place]) Glucose 193 70 - 199 mg/dL [facility] ([place]) Comment: Interpretive Data Fasting glucose >/= 126 mg/dl is diagnostic for diabetes. Fasting is defined as no caloric intake for at least 8 hours. Fasting glucose between 100 mg/dl to 125 mg/dl is diagnostic of prediabetes. In a patient with classic symptoms of hyperglycemia or hyperglycemic crisis, a random glucose >/= 200 mg/dl is diagnostic for diabetes. In the absence of unequivocal hyperglycemia, results should be confirmed by repeat testing. The classification and Diagnosis of Diabetes Diabetes Care 202; 46: S19-S40. Current interpretive data was last revised 2022. Calcium 9.7 8.5 - 10.3 mg/dL [facility] ([place]) Bilirubin, total 0.6 0.1 - 1.2 mg/dL [facility] ([place]) Protein, pl 6.6 6.5 - 8.5 g/dL [facility] ([place]) Albumin 4.5 3.5 - 5.0 g/dL [facility] ([place]) Alk phos 113 40 - 130 Units/L [facility] ([place]) ALT 11 7 - 55 Units/L [facility] ([place]) AST 20 10 - 50 Units/L [facility] ([place]) Blood 12/04/2024 1:15 PM CDT 12/04/2024 1:38 PM CDT us Jamil Martinez MD LAB BLOOD ORDERABLES Natalie l Result [facility] ([place]) 1 [facility] Department of Laboratories [place], [place] [id number] * Albumin Creatinine Ratio, Urine (09/25/2024 8:32 AM CDT) Albumin Ur 21.0 mg/L Comment: Interpretive Data No reference range established. Current interpretive data was last revised 2018. Creatinine Ur 111.4 mg/dL [facility] Comment: Interpretive Data No reference range established. Current interpretive data was last revised 2018. Albumin Creatinine Ratio, Ur 19 1 - 29 mg/g [facility] Urine 09/25/2024 8:32 AM CDT 09/25/2024 3:35 PM CDT us Eyal Pitts MD LAB URINE ORDERABLES Final Result Performing Organization Address City/State/ZIP [facility] Phone Number ANA [phone] [address] Department [place] [address] * Lipid panel (09/25/2024 8:32 AM CDT) Cholesterol 120 30 - 199 mg/dL Comment: Interpretive Data Ages < or = 19 years Acceptable: <170 mg/dL Borderline high: 170-199 mg/dL High: >or= 200 mg/dL Ages > or = 20 years Desirable: <200 mg/dL Borderline high: 200-239 mg/dL High: >or= 240 mg/dL Literature References: 1. Expert Panel on Integrated Guidelines for Cardiovascular Health and Risk Reduction in Children and Adolescents. Pediatrics 2011;128:S213 2. NCEP Expert Panel. Circulation 2004;110:227 Current Interpretive Data was last revised on 2017. Triglycerides 75 <=149 mg/dL [facility] Comment: Interpretive Data Ages < or = 9 years Acceptable: <75 mg/dL Borderline high: 75-99 mg/dL High: >or= 100 mg/dL Ages 10 to 20 years Acceptable: <90 mg/dL Borderline high: 90-129 mg/dL High: >or= 130 mg/dL Ages > or = 20 years Desirable: <150 mg/dL Borderline high: 150-199 mg/dL High: 200-499 mg/dL Very high: >or= 499 mg/dL Literature References: 1. Expert Panel on Integrated Guidelines for Cardiovascular Health and Risk Reduction in Children and Adolescents. Pediatrics 2011;128:S213 2. NCEP Expert Panel. Circulation 2004;110:227 Current Interpretive Data was last revised on 2017. HDL 61 >=40 mg/dL [facility] JAEGER Comment: Interpretive Data Ages < or = 19 years Acceptable: >45 mg/dL Borderline low: 40-45 mg/dL Low: <40 mg/dL Ages > or = 20 years Desirable: >or= 60 mg/dL Low: <40 mg/dL Literature References: 1. Expert Panel on Integrated Guidelines for Cardiovascular Health and Risk Reduction in Children and Adolescents. Pediatrics 2011;128:S213 2. NCEP Expert Panel. Circulation 2004;110:227 Current Interpretive Data was last revised on 2017. LDL, calculated 44 <=129 mg/dL [facility] Comment: Interpretive Data Ages < or = 19 years Acceptable: <110 mg/dL Borderline high: 110-129 mg/dL High: >or= 130 mg/dL Ages > or = 20 years Optimal: <100 mg/dL Near optimal: 100-129 mg/dL Borderline high: 130-159 mg/dL High: >160 mg/dL Calculated using the Juan LDL-C estimating equation. This equation was implemented on 2023. Prior to this date LDL-C was estimated using the Friedewald equation. Literature References: 1. Expert Panel on Integrated Guidelines for Cardiovascular Health and Risk Reduction in Children and Adolescents. Pediatrics 2011;128:S213 2. NCEP Expert Panel. Circulation 2004;110:227 3. Juan Concepcion et al. LAMINE Cardiol. 2020 July 10;5(5):540-548. doi: 10.1001/jamacardio.2020.0013 Current Interpretive Data was last revised on 2023. Non-HDL Cholesterol 59 mg/dL [facility] Comment: Interpretive Data Ages < or = 19 years Acceptable: <120 mg/dL Borderline high: 120-144 mg/dL High: >145 mg/dL Ages > or = 20 years When triglycerides are >200 mg/dL, Non-HDL cholesterol is a secondary target of therapy with treatment goals that are 30 mg/dL greater than the LDL cholesterol target. Literature References: 1. Expert Panel on Integrated Guidelines for Cardiovascular Health and Risk Reduction in Children and Adolescents. Pediatrics 2011;128:S213 2. NCEP Expert Panel. Circulation 2004;110:227 Current Interpretive Data was last revised on 2017. Chol/HDL ratio 2 [facility]NA JAEGER Blood 09/25/2024 8:32 AM CDT 09/25/2024 3:35 PM CDT us Eyal Pitts MD LAB BLOOD ORDERABLES Final Result Performing Organization Address City/[place] [phone] [facility] Department [place] [address] * DIABETES EYE EXAM (01/02/2022) Historical Provider HEALTH MAINTENANCE Final Result from Last 3 Months or Most Recently Relevant to Health Maintenance Insurance MEDICARE ON LICENSE OF [facility] MEDICARE [facility] MEDICARE SUPPLEMENT MEDICARE [facility] MEDICARE SUPPLEMENT Advance Directives For more information, please contact: [phone] Documents on File Type Date Recorded Patient Welt Drawer Expl anation ADVANCE DIRECTIVE 11/20/2022 2:50 PM Power of [employer] * Full Code (Latest Code Status on File) Date Activated Date Inactivated Comments 09/11/2023 11:12 AM 09/12/2023 5:20 AM * Full Code Date Activated Date Inactivated Comments 04/25/2023 10:45 AM 04/25/2023 4:02 PM * Full Code Date Activated Date Inactivated Comments 11/14/2022 10:23 AM 11/16/2022 5:18 PM * Full Code Date Activated Date Inactivated Comments 11/17/2020 1:40 PM 11/18/2020 8:03 PM Care Teams It Application Development Manager Relationship Specialty Start Date End Date Eyal Pitts MD [address] [facility] [address] [place] [address] PCP - General Family Medicine 09/10/24 Jayla Muro DO Consulting Physician Otolaryngology 08/24/18 Natalie Vang, CLERK TELEGRAPH SERVICE Nurse Practitioner Medical Oncology 05/03/21 Eric Herron, JULY [address] [place] [address] Optometry 12/14/21 Jeramy Vargas MD [address] [place] [address] Medical Oncologist/Hematologis t Hematology and Oncology 05/04/22 Guido Baez MD [address] [place] [address] [address] [place] [address] Consulting Physician Neurology 02/21/23 Jamil Martinez MD [address] [facility] [address] [place] [address] Medical Oncologist/Hematologis t Medical Oncology 05/22/24 Guido Albrecht MD [address] [place] [address] Consulting Physician Cardiology 09/10/24 Magdy Tejeda MD Consulting Physician Plastic Surgery 04/14/24
[2025-02-10] MEDS: ACETAMINOPHEN 500 MG TABLET 1000 MG PO (11:36)
[2025-02-10 11:37] VITALS: BP 145/74; PULSE 97; RESP 15; O2SAT 99
[2025-02-10 11:50] LABS: Hematocrit 37.1 % (42.0-52.0); Hemoglobin 12.6 g/dL (14.0-18.0); Immature Granulocyte Percent A 1.6 % (0-0.5); Immature Platelet Fraction Pct 17.0 % (0.9-11.2); Lymphocytes Absolute Auto 0.43 K/mm3 (0.9-3.2); Mean Corpuscular HGB Conc 34.0 g/dl (32-36); Mean Corpuscular Hemoglobin 29.1 pg (26-34); Mean Corpuscular Volume 85.7 fl (80-100); Nucleated Red Blood Cells Absolute Auto 0.000 K/mm3 (0.0-0.012); Nucleated Red Blood Cells Perc 0.0 % (0.0-0.2); Platelet Count Result 36 k/mm3 (150-375); Red Blood Count 4.33 M/mm3 (4.6-6.20)
--- NOTE | 2025-02-10 11:55 | ED_ITS ---
HPI - General Adult General Chief complaint: Abdominal Pain <GINO Jimenez - Last Filed: 02/10/25 17:28> Stated complaint: abd pain <GINO Jimenez - Last Filed: 02/10/25 17:28> History of Present Illness HPI narrative: 79-year-old male presenting via EMS from his pcp's office with diffuse abdominal pain and bloating. He reports the abdominal pain is intermittently sharp but that he feels a constant pressure and this has been ongoing for the last year. He also reports significant weight loss last year as he is struggling to eat due to constant nausea/vomiting. Today he states he felt as if he was going to pass out and experienced dizziness and sharp or abdominal pain. His last bowel movement was a few days ago endorsing that it was normal. He also reports intermittent migraines. Denies melena/hematochezia, fevers/chills, chest pain/shortness of breath cough/congestion, or any history of trauma. Patient has a history of [place] cell carcinoma, CLL, is on Eliquis as he has a carotid stent, hypertension, hyperlipidemia, diabetes, and neuropathy. <GINO Jimenez - Last Filed: 02/10/25 17:28> Related Data Home medications: Home Medications ?Medication ?Instructions ?Recorded ?Confirmed ?Last Taken ?Type apixaban 2.5 mg tablet (Eliquis) 2.5 mg PO BID 9 02/19/19 Unknown History simvastatin 5 mg tablet 5 mg PO DAILY 02/19/1902/19 Unknown History <GINO Jimenez - Last Filed: 02/10/25 17:28> Allergies/adverse reactions: Allergies Allergy/AdvReac Type Severity Reaction Status Date / Time Sulfa (Sulfonamide Allergy Rash Verified 02/10/25 13:33 Antibiotics) <GINO Jimenez - Last Filed: 02/10/25 17:28> Review of Systems 2 Review of Systems: All systems reviewed & are unremarkable except as noted in HPI and below <GINO Jimenez - Last Filed: 02/10/25 17:28> [facility] Past Medical History Medical History: Medical History AV block, 2nd degree DM II (diabetes mellitus, type II), controlled Hypertension <GINO Jimenez - Last Filed: 02/10/25 17:28> Surgical History Surgical History: Surgical History History of hip surgery History of permanent cardiac pacemaker placement Hx of cardiac cath <GINO Jimenez - Last Filed: 02/10/25 17:28> Social History Social History: Social History (Updated 09/19/22 @ 15:03 by Jose Barber MD) Smoking status: Never smoker Alcohol intake: never Substance use: never <GINO Jimenez - Last Filed: 02/10/25 17:28> Exam 2 Narrative: GENERAL: No acute distress. Thin and frail. HEAD: Normocephalic, atraumatic. EYES: PERRLA and EOMI. ENT: Nares clear, no rhinorrhea or epistaxis. Mucous membranes moist. Oropharynx without tonsillar hypertrophy exudate or other lesions. Bilateral TMs pearly jonas non-bulging NECK: Supple. No adenopathy or masses. No carotid bruits or JVD CHEST: Clear to auscultation. No respiratory distress. No wheezes rales or rhonchi HEART: Regular rate and rhythm. No murmur heard. Normal peripheral pulses. ABDOMEN: Soft, nondistended, normal active bowel sounds. Diffuse TTP. EXTREMITIES: Normal range of motion. No edema. SKIN: Warm, dry, no rash. NEURO: No focal deficits. Alert and oriented x3. 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 Patient here with abdominal pain, CT showing potential pancreatic cancer. Discussed with GI who recommends transfer, however patient did not want to be transferred and would rather go home with outpatient management; his LFTs, lipase, and bilirubin are normal. I do feel this is quite reasonable, with shared decision making with patient, information for follow-up to [facility] at [facility] given, along with return precautions. < Carissa Davis MD - Last Filed: 02/10/25 17:38> Vital Signs Vital signs: Vital Signs Temperature 98.2 F 02/10/25 10:26 Pulse Rate 94 02/10/25 10:26 Respiratory Rate 14 02/10/25 10:26 Blood Pressure 189/95 H 02/10/25 10:26 Pulse Oximetry 99 02/10/25 10:26 Oxygen Delivery Room Air 02/10/25 10:26 Temperature 98.2 F 02/10/25 10:26 Pulse Rate 63 02/10/25 15:25 Respiratory Rate 17 02/10/25 15:25 Blood Pressure 133/71 02/10/25 15:25 Pulse Oximetry 100 02/10/25 15:25 Oxygen Delivery Room Air 02/10/25 10:26 <GINO Jimenez - Last Filed: 02/10/25 17:28> Vital Signs Temperature 98.2 F 02/10/25 10:26 Pulse Rate 94 02/10/25 10:26 Respiratory Rate 14 02/10/25 10:26 Blood Pressure 189/95 H 02/10/25 10:26 Pulse Oximetry 99 02/10/25 10:26 Oxygen Delivery Room Air 02/10/25 10:26 Temperature 98.2 F 02/10/25 10:26 Pulse Rate 63 02/10/25 15:25 Respiratory Rate 17 02/10/25 15:25 Blood Pressure 133/71 02/10/25 15:25 Pulse Oximetry 100 02/10/25 15:25 Oxygen Delivery Room Air 02/10/25 10:26 <Carissa Davis MD - Last Filed: 02/10/25 17:38> [facility] MDM Narrative Medical decision making narrative: 79-year-old male presenting via EMS from his pcp's office with diffuse abdominal pain and bloating. He reports the abdominal pain is intermittently sharp but that he feels a constant pressure and this has been ongoing for the last year. He also reports significant weight loss last year as he is struggling to eat due to constant nausea/vomiting, he is not presently nauseas. Today he states he felt as if he was going to pass out and experienced dizziness and sharp or abdominal pain. His last bowel movement was a few days ago endorsing that it was normal. He also reports intermittent migraines. Denies melena/hematochezia, fevers/chills, chest pain/shortness of breath cough/congestion, or any history of trauma. Patient has a history of [place] cell carcinoma, is on Eliquis as he has a carotid stent and a pacemaker, hypertension, hyperlipidemia, diabetes, and neuropathy. Upon my initial assessment patient's vitals are stable but he does appear uncomfortable. Abdominal imaging demonstrates dilatation of the pancreatic duct in the tail of the pancreas, which may be secondary to chronic pancreatitis or obstruction from occult adenocarcinoma. Head CT demonstrates no acute intracranial abnormalities. Labs demonstrate neutropenia and leukopenia likely due to patient's CLL. Other labs WNL. EKG is without significant high-risk changes. After administering Tylenol patient reports he was able to sleep stating that his pain is more manageable. Discussed with Dr. Hendricks with GI patient presentation and workup. He recommends that if the patient is unstable then he needs to be transferred to a different facility for further workup. Patient is stable reporting his symptoms have improved and that he would be comfortable with outpatient follow-up and care as opposed to being transferred. Discussed with ER provider Dr. Davis patient presentation and workup. She agrees with further outpatient treatment for the patient. Administered 1L LR and plan to discharge home with Zofran and a phone number to call for [facility]-GI Surgery at [facility] for further workup. Differential diagnosis and treatment plan were discussed with the patient. Patient agrees with discussion and after shared medical decision making agrees with plan of care. All questions were answered to the patient's satisfaction. Given reasons to return. <GINO Jimenez - Last Filed: 02/10/25 17:28> Differential Diagnosis Differential Diagnosis: Differential diagnostic considerations for acute abdominal pain include surgical abdominal etiology, ischemic bowel, inflammatory bowel disease, gastritis, PUD, gastroenteritis, cardiac etiology, appendicitis, diverticulitis, bowel obstruction, kidney stone, pyelonephritis, abdominal aortic aneurysm, pancreatitis, constipation, endometriosis. <GINO Jimenez - Last Filed: 02/10/25 17:28> Medical Records I have reviewed the following patient records and this information was taken into consideration when formulating the assessment and plan.: previous labs and previous ER visits <GINO Jimenez - Last Filed: 02/10/25 17:28> Lab Data MDM Lab Attestation statement: I personally reviewed the patient's lab results. <GINO Jimenez - Last Filed: 02/10/25 17:28> Result diagrams: 02/10/25 10:41 02/10/25 10:41 <GINO Jimenez - Last Filed: 02/10/25 17:28> Labs: Lab Results 02/10/25 02/10/25 Range/Units 10:41 11:45 WBC 1.2 L* (4.5-10.0) K/mm3 RBC 4.33 L (4.6-6.20) M/mm3 Hgb 12.6 L (14.0-18.0) g/dL Hct 37.1 L (42.0-52.0) % MCV 85.7 (80-100) fl MCH 29.1 (26-34) pg MCHC 34.0 (32-36) g/dl RDW 12.6 (11.5-14.5) % Plt Count 36 L D (150-375) k/mm3 MPV TNP Immature Gran % (Auto) 1.6 H (0-0.5) % Neut % (Auto) 25.8 L (45.5-73.1) % Lymph % (Auto) 34.7 (18.3-44.2) % [place] % (Auto) 37.1 H (2.6-8.5) % Eos % (Auto) 0.0 (0-4.4) % Baso % (Auto) 0.8 (0.2-1.2) % Lymph # (Auto) 0.43 L (0.9-3.2) K/mm3 [place] # (Auto) 0.5 (0.1-0.6) K/mm3 Eos # (Auto) 0.0 (0-0.3) K/mm3 Baso # (Auto) 0.0 (0.0-0.1) K/mm3 Abs Immat Gran (auto) 0.02 (0.00-0.031) K/mm3 Absolute Neuts (auto) 0.3 L* (1.3-6.7) K/mm3 Absolute Nucleated RBC 0.000 (0.0-0.012) K/mm3 Band Neutrophils % Not Reportable Nucleated RBC % 0.0 (0.0-0.2) % Smudge Cells Few Platelet Estimate Decreased (Adequate) % Immature Plt Fraction 17.0 H (0.9-11.2) % Ovalocytes 1+ Yajaira Cells 1+ Acanthocytes (Spur) 1+ Schistocytes None seen Sodium 134 L (137-145) mmol/L Potassium 4.1 (3.4-5.0) mmol/L Chloride 100 (98-107) mmol/L Carbon Dioxide 28 (22-30) mmol/L Anion Gap 6 (4-12) mmol/L BUN 15 (9-20) mg/dL Creatinine 0.78 (0.7-1.3) mg/dL Estim Creat Clear Calc 58 ml/min Estimated GFR > 60 (59 - ) Glucose 113 H (65-110) mg/dL Calcium 9.0 (8.4-10.2) mg/dL Total Bilirubin 0.7 (0.2-1.3) mg/dL AST 24 (17-59) U/L ALT 17 (6-50) U/L Alkaline Phosphatase 120 (38-126) U/L Total Protein 7.2 (6.3-8.2) g/dL Albumin 4.4 (3.5-5.1) g/dL Lipase 121 (23-300) U/L Urine Color Yellow (Yellow) Urine Appearance Clear (Clear) Urine pH 5.0 (5.0-9.0) Ur Specific [place] 1.019 (1.001-1.035) Urine Protein Negative (Negative) mg/dL Urine Glucose (UA) Negative (Negative) mg/dL Urine Ketones Negative (Negative) mg/dL Ur Blood (Man) Negative (Negative) Urine Nitrate Negative (Negative) Urine Bilirubin Negative (Negative) Urine Urobilinogen 1.0 (<2.0) mg/dL Leukocyte Esterase Rfl Negative (Negative) LAYLA/UL <GINO Jimenez - Last Filed: 02/10/25 17:28> Lab Results 02/10/25 02/10/25 Range/Units 10:41 11:45 WBC 1.2 L* (4.5-10.0) K/mm3 RBC 4.33 L (4.6-6.20) M/mm3 Hgb 12.6 L (14.0-18.0) g/dL Hct 37.1 L (42.0-52.0) % MCV 85.7 (80-100) fl MCH 29.1 (26-34) pg MCHC 34.0 (32-36) g/dl RDW 12.6 (11.5-14.5) % Plt Count 36 L D (150-375) k/mm3 MPV TNP Immature Gran % (Auto) 1.6 H (0-0.5) % Neut % (Auto) 25.8 L (45.5-73.1) % Lymph % (Auto) 34.7 (18.3-44.2) % [place] % (Auto) 37.1 H (2.6-8.5) % Eos % (Auto) 0.0 (0-4.4) % Baso % (Auto) 0.8 (0.2-1.2) % Lymph # (Auto) 0.43 L (0.9-3.2) K/mm3 [place] # (Auto) 0.5 (0.1-0.6) K/mm3 Eos # (Auto) 0.0 (0-0.3) K/mm3 Baso # (Auto) 0.0 (0.0-0.1) K/mm3 Abs Immat Gran (auto) 0.02 (0.00-0.031) K/mm3 Absolute Neuts (auto) 0.3 L* (1.3-6.7) K/mm3 Absolute Nucleated RBC 0.000 (0.0-0.012) K/mm3 Band Neutrophils % Not Reportable Nucleated RBC % 0.0 (0.0-0.2) % Smudge Cells Few Platelet Estimate Decreased (Adequate) % Immature Plt Fraction 17.0 H (0.9-11.2) % Ovalocytes 1+ [place] Cells 1+ Acanthocytes (Spur) 1+ Schistocytes None seen Sodium 134 L (137-145) mmol/L Potassium 4.1 (3.4-5.0) mmol/L Chloride 100 (98-107) mmol/L Carbon Dioxide 28 (22-30) mmol/L Anion Gap 6 (4-12) mmol/L BUN 15 (9-20) mg/dL Creatinine 0.78 (0.7-1.3) mg/dL Estim Creat Clear Calc 58 ml/min Estimated GFR > 60 (59 - ) Glucose 113 H (65-110) mg/dL Calcium 9.0 (8.4-10.2) mg/dL Total Bilirubin 0.7 (0.2-1.3) mg/dL AST 24 (17-59) U/L ALT 17 (6-50) U/L Alkaline Phosphatase 120 (38-126) U/L Total Protein 7.2 (6.3-8.2) g/dL Albumin 4.4 (3.5-5.1) g/dL Lipase 121 (23-300) U/L Urine Color Yellow (Yellow) Urine Appearance Clear (Clear) Urine pH 5.0 (5.0-9.0) Ur Specific [place] 1.019 (1.001-1.035) Urine Protein Negative (Negative) mg/dL Urine Glucose (UA) Negative (Negative) mg/dL Urine Ketones Negative (Negative) mg/dL Ur Blood (Man) Negative (Negative) Urine Nitrate Negative (Negative) Urine Bilirubin Negative (Negative) Urine Urobilinogen 1.0 (<2.0) mg/dL Leukocyte Esterase Rfl Negative (Negative) LAYLA/UL <Carissa Davis MD - Last Filed: 02/10/25 17:38> Imaging Data Attestation: I personally reviewed and interpreted this imaging study as follows: < GINO Jimenez - Last Filed: 02/10/25 17:28> Radiologist's impression: ITS Impressions Head CT 02/10/25 11:24 IMPRESSION: 1. No acute intracranial findings. Abdomen/Pelvis CT 02/10/25 11:32 IMPRESSION: 1. Dilatation of the pancreatic duct in the tail of the pancreas, which may be secondary to chronic pancreatitis or obstruction from occult adenocarcinoma. <GINO Jimenez - Last Filed: 02/10/25 17:28> ITS Impressions Head CT 02/10/25 11:24 IMPRESSION: 1. No acute intracranial findings. Abdomen/Pelvis CT 02/10/25 11:32 IMPRESSION: 1. Dilatation of the pancreatic duct in the tail of the pancreas, which may be secondary to chronic pancreatitis or obstruction from occult adenocarcinoma. <Carissa Davis MD - Last Filed: 02/10/25 17:38> ECG Data EKG #1: ECG completion date: 02/10/25 <GINO Jimenez Last Filed: 02/10/25 17:28> ECG completion time: 11:30 <GINO Jimenez Last Filed: 02/10/25 17:28> normal rate, sinus rhythm and other (Ventricular pacemaker) <GINO Jimenez Last Filed: 02/10/25 17:28> Discharge Plan Discharge Clinical Impression: Abdominal pain, Chronic lymphocytic leukemia <GINO Jimenez Last Filed: 02/10/25 17:28> Patient Disposition: Home <GINO Jimenez Last Filed: 02/10/25 17:28> Condition: Stable <GINO Jimenez Last Filed: 02/10/25 17:28> Instructions: Abdominal Pain (ED) <GINO Jimenez Last Filed: 02/10/25 17:28> Additional Instructions: Return to the ER if you experience fever, abdominal pain with nausea and vomiting, you are unable to keep down liquids or solids, blood in the stool, pain or burning with urination, blood in the urine or any other symptoms that are concerning to you. Small frequent meals. [place] diet. Hydrate with electrolytes and water. Take Tylenol (up to 4,000 mg/day) as needed for pain. Take all other medications as needed and prescribed. Follow up with [facility] Hepatobilliary-Pancreatic and GI Surgery. Call the phone number provided. You are at an increased risk of infection due to your CLL. To protect herself wash your hands frequently with soap and water, avoid close contact with anyone who is sick, wear a mask in busy public settings, maintain good hygiene, monitor for signs of infection, stay up to date on vaccines, avoid raw or undercooked foods, return for any further concerns. Follow-up with PCP for any other general concerns. <GINO Jimenez Last Filed: 02/10/25 17:28> Patient Language: Prydeinig <GINO Jimenez Last Filed: 02/10/25 17:28> Prescriptions: New ondansetron 4 mg tablet,disintegrating 4 mg PO Q6H PRN (Reason: nausea and vomiting) Qty: 20 0RF No Action simvastatin 5 mg Tablet 5 mg PO DAILY Eliquis 2.5 mg Tablet 2.5 mg PO BID acetaminophen 500 mg capsule 500 mg PO Q4H Qty: 20 0RF cephalexin 500 mg capsule 500 mg PO Q6H 7 Days Qty: 28 0RF <GINO Jimenez - Last Filed: 02/10/25 17:28> Follow-up/Referrals: [facility]-GI Surgery [facility] [Other] Brandon,Jennifer Hernandez MD [Primary Care Provider, Unknown] <GINO Jimenez - Last Filed: 02/10/25 17:28>
[2025-02-10 12:04] LABS: Add Urine Microscopic? NO; Appearance Urine Clear (Clear); Glucose Urine UA Negative (Negative); Leukocyte Esterase Ur Negative LEU/UL (Negative); Nitrate Urine Negative (Negative); Specific Grav Ur 1.019 (1.001-1.035)
[2025-02-10 12:11] LABS: White Blood Count 1.2 K/mm3 (4.5-10.0)
[2025-02-10 13:05] LABS: Smudge Cells FEW
[2025-02-10 13:06] LABS: Acanthocytes 1+; Burr Cells 1+; Ovalocytes 1+; Schistocytes None Seen
[2025-02-10 13:16] VITALS: BP 107/64; PULSE 72; RESP 20; O2SAT 97
[2025-02-10] MEDS: LACTATED RINGERS 1,000 ML 999 ML IV CONT (15:23)
[2025-02-10 15:25] VITALS: BP 133/71; PULSE 63; RESP 17; O2SAT 100
== END 2025-02-10 16:30 | disposition home or self-care (01) ==
PROVIDERS: Emergency Medicine; PCP Family Medicine Sports Medicine
DX: R10.9 Unspecified abdominal pain (principal); C91.10 Chronic lymphocytic leukemia of B-cell type not having achieved remission; I10 Essential (primary) hypertension; E78.5 Hyperlipidemia, unspecified; E11.40 Type 2 diabetes mellitus with diabetic neuropathy, unspecified; Z95.0 Presence of cardiac pacemaker; Z95.5 Presence of coronary angioplasty implant and graft; Z85.821 Personal history of Merkel cell carcinoma; Z79.01 Long term (current) use of anticoagulants; Z79.899 Other long term (current) drug therapy; R93.3 Abnormal findings on diagnostic imaging of other parts of digestive tract
CPT/HCPCS: 36415; 70450; 74177; 80053; 81003; 83690; 85025; 85055; 93005; 96360; 99284; A9270; J7120; Q9967